=== PATIENT | female | born 1955 | race Caucasian/White ===

== ENCOUNTER 2017-07-30 05:39 | Outpatient (CLI) | payer BC ==
[~2017-07-30] VITALS: Ht 165.1 cm; Wt 83.9 kg
[~2017-07-30 05:39] MED LIST: DAPA5TAB PO; HYDR473S50 PO; METF500T4 PO
[2017-07-30] MEDS ORDERED: LEVO112T55 PO (13:49)
[2017-07-30] MEDS ORDERED: METF500T8 PO (13:49)
[2017-07-30] MEDS ORDERED: DAPA10TA PO (13:49)
== END 2017-07-30 13:55 ==
LOC: PREOP 05:39
PROVIDERS: ATTEND Surgery
DX: Z01.818 Encounter for other preprocedural examination (principal); Z86.010 Personal history of colon polyps

== ENCOUNTER 2017-08-06 06:59 | Day surgery (SDC) | payer BC ==
[~2017-08-06] VITALS: Ht 165.1 cm; Wt 83.9 kg
[~2017-08-06 06:59] MED LIST changes: +DAPA10TA PO; +LEVO112T55 PO; +METF500T8 PO
[2017-08-06] MEDS ORDERED: NS IV 500 ML 500 ML IV PRN (07:18)
[2017-08-06] MEDS ORDERED: NS IV 500 ML 500 ML ONE (07:20)
[2017-08-06 07:42] VITALS: BP 141/90
[2017-08-06] MEDS ORDERED: fentaNYL INJECTION 100 MCG/2 ML AMP ONE ×2 (08:28)
[2017-08-06] MEDS ORDERED: MIDAZOLAM 2 MG/2 ML (VERSED) VIAL ONE ×4 (08:28→08:29)
--- NOTE | 2017-08-06 08:36 | Conscious Sedation/ASA ---
Conscious Sedation Pre-Proced Time Reviewed: 08:36 ASA Class: 2 Airway Mallampati Classification: (sitka appropriate class) I. II. III, IV Lungs Heart ASA score ASA 1: a normal healthy patient ASA 2: a patient with a mild systemic disease (mid diabetes, controlled hypertension, obesity ASA 3: a patient with a severe systemic disease that limits activity (angina , COPD, prior Myocardial infarction) ASA 4: a patient with an incapacitating disease that is a constant threat to life (CHF, renal failure) ASA 5: a moribund patient not expected to survive 24 hrs. (ruptured aneurysm) ASA 6: a declared brain patient whose organs are being harvested. For emergent operations, add the letter E after the classification Grade 1 Sedation Plan: Discussed options with patient/fam Note The patient is an appropriate candidate to undergo the planned procedure, sedation, and anesthesia. The patient immediately re-assessed prior to indication. DONALD LEVIN MD Aug 06, 2017 8:36 am
--- NOTE | 2017-08-06 08:36 | History & Physicial ---
History of Present Illness History of Present Illness Reason for visit/HPI to undergo screening colonoscopy. She has a personal history of polyps and a family history of colon cancer. Her brother demised due to metastatic rectal carcinoma at age 38. Date of Admission Date Seen by Provider: Aug 06, 2017 Time Seen by Provider: 08:20 I consulted on this patient on 08/06/17 08:33 Attending Physician Donald Gilbert MD Admitting Physician Zhane Jon DO Consult Allergies and Home Medications Allergies Coded Allergies: No Known Drug Allergies (Unverified , 03/25/12) Home Medications Dapagliflozin Propanediol 10 Mg Tablet, 10 MG PO DAILY, (Reported) Levothyroxine Sodium 112 Mcg Tablet, 112 MCG PO DAILY, (Reported) Metformin HCl 500 Mg Tab.er.24h, 500 MG PO DAILY, (Reported) Past Aexzyda-Ukwflu-Ionzzw Hx Patient Social History Marrital Status: , Employed/Student: self-employed Alcohol Use: Denies Use Recreational Drug Use: No Smoking Status: Never a Smoker Recent Foreign Travel: No Contact w/other who traveled: No Recent Hopitalizations: No Immunizations Up To Date Tetanus Booster (TDap): Unknown Date of Influenza Vaccine: Jul 15, 2016 Seasonal Allergies Seasonal Allergies: Yes Surgeries Yes Thyroidectomy, Tonsillectomy Respiratory No Cardiovascular No Neurological No Genitourinary No Gastrointestinal Yes Polyps Musculoskeletal Yes Endocrine History of Endocrine Disorders: Yes Endocrine Disorders: Diabetes, Non-Insulin dep HEENT History of HEENT Disorders: No Loss of Vision: Bilateral Hearing Impairment: Denies Cancer No Psychosocial History of Psychiatric Problem: No Family Medical History Significant Family History: Cancer Family Hx: Alcoholism 19 FATHER Cardiovascular disease 19 MOTHER Colon cancer G8 BROTHER Diabetes mellitus 19 MOTHER G8 BROTHER Drug abuse G8 BROTHER Hypertension 19 MOTHER G8 BROTHER Constitutional: no symptoms reported EENTM: no symptoms reported Respiratory: no symptoms reported, dyspnea on exertion Gastrointestinal: no symptoms reported Genitourinary: no symptoms reported Musculoskeletal: no symptoms reported Skin: no symptoms reported Psychiatric/Neurological: No Symptoms Reported Physical Exam Vital Signs Vital Sign - Last 12Hours 08/06/17 07:42 Temp 97.3 Pulse 77 Resp 18 B/P (MAP) 141/90 Pulse Ox 95 O2 Delivery Room Air Capillary Refill : General Appearance: No Apparent Distress HEENT: Normal ENT Inspection Neck: Normal Inspection Respiratory: Lungs Clear Gastrointestinal: Non Tender, Soft Rectal: Deferred Neurologic/Psychiatric: Alert, Oriented x3 Skin: Warm/Dry Assessment/Plan Assessment and Plan lady with a personal history of polyps and a family history of colon cancer. Reviewed the details of colonoscopy including post polypectomy bleeding and iatrogenic perforation. Seems to be in agreement to proceed Problems: DONALD GILBERT MD Aug 06, 2017 8:36 am
[2017-08-06] MEDS: fentaNYL INJECTION 100 MCG/2 ML AMP IVP PRN ×4 (08:38→08:54)
[2017-08-06] MEDS: MIDAZOLAM 2 MG/2 ML (VERSED) VIAL IVP PRN ×4 (08:39→08:55)
--- NOTE | 2017-08-06 09:21 | Endo Procedure Record ---
Endo Procedure Report Date of Procedure Aug 06, 2017 Surgeon (s) DONALD LEVIN MD Post Procedure/Op Diagnosis 1 mm rectal polyp Procedure Performed colonoscopy to cecum Hot biopsy polypectomy Description of Procedure Anesthesia Type: Conscious Sedation Specimen(s) collected/removed rectal polyp Description of the Procedure Indication for procedure: This lady, with a personal history of polyps and a family history of colon cancer, came in for screening colonoscopy. Her brother demised of metastatic, advanced rectal cancer at age 38. Informed consent was obtained after reviewing the procedure in detail. Description of the procedure: She was placed in left lateral decubitus position and her vital signs were monitored. Conscious sedation was achieved using Versed and fentanyl. Digital rectal examination was unremarkable. The colonoscope was then introduced into the rectum and advanced all the way up to the cecum. The quality of bowel preparation was excellent. The scope was then withdrawn slowly and the mucosa examined in a systematic fashion. Findings: 1 mm polyp at the mid rectum, at was excised with hot biopsy forceps. She tolerated the procedure well and was taken back to the nursing area in a stable condition. Impression: Polyp surveillance. Small rectal polyp excised. Positive family history. Recommend repeating in 3 years. Copies To: ROXIE DAMIAN XAVIER M MD Aug 06, 2017 9:21 am
--- NOTE | 2017-08-06 09:24 | Discharge Inst-Simple/Standard ---
Discharge Inst-Standard Discharge Medications New, Converted or Re-Newed RX: Other Patient Instructions/Follow Up Plan of Care/Instructions/FU: repeat colonoscopy in 3 years Activity as Tolerated: Yes Discharge Diet: No Restrictions DONALD LEVIN MD Aug 06, 2017 9:24 am
[2017-08-06 09:25] VITALS: BP 125/73
[2017-08-06 09:55] VITALS: BP 124/74
[2017-08-06 10:07] VITALS: BP 124/74
== END 2017-08-06 10:07 | disposition home or self-care (01) ==
LOC: ENDO 06:59
PROVIDERS: ATTEND Surgery
DX: Z12.11 Encounter for screening for malignant neoplasm of colon (principal); K62.1 Rectal polyp; Z86.010 Personal history of colon polyps; Z80.0 Family history of malignant neoplasm of digestive organs; E11.9 Type 2 diabetes mellitus without complications; Z79.899 Other long term (current) drug therapy
CPT/HCPCS: 88305

== ENCOUNTER → 2017-08-15 | Outpatient (CLI) | payer BC ==
[~2017-08-15] VITALS: Ht 165.1 cm; Wt 83.0 kg
[~2017-08-15] MED LIST changes: +CATHETER FLUSH 10 ML SYR IV PRN
[2017-08-15 09:30] VITALS: BP 130/100
[2017-08-15 09:37] VITALS: BP 171/82
[2017-08-15 09:43] VITALS: BP 157/78
--- NOTE | 2017-08-16 13:50 | STRESS TEST ---
DATE OF SERVICE: 08/15/2017 EXERCISE MYOVIEW STRESS TEST REPORT REFERRING PHYSICIAN: Dr. Jon. Baseline heart rate is 78. Baseline blood pressure 130/100. Baseline EKG is sinus rhythm with no ischemic changes. In summary, the patient started exercising with a baseline heart rate, blood pressure and EKG mentioned above, was able to exercise for a total of 4 minutes on standard Sunny protocol. With peak exercise level, EKG was showing minimal nondiagnostic changes. During recovery, heart rate and blood pressure returned to baseline. EKG returned to baseline. The resting and stress images were reviewed and compared in the short axis, horizontal long axis and vertical long axis views. Review of the images showed good radiotracer uptake with no significant ischemia or infarction. SSS is 0. TID value is 0.95. On the gated images, the left ventricle appeared to be normal size with normal contractility. Calculated ejection fraction 63%. CONCLUSION: 1. Fair exercise tolerance, a total of 4 minutes of standard Sunny protocol, total of 5.8 METS achieving 88% of maximum expected heart rate. 2. Appropriate heart rate and blood pressure response to exercise returned to baseline during recovery. 3. Nondiagnostic EKG changes with exercise returned to baseline during recovery. 4. No ischemia or infarction on SPECT images. 5. Normal left ventricular size with normal contractility. Calculated ejection fraction 63%. Job ID: [id number] DocumentID: [id number] Dictated Date: 08/15/2017 14:51:29 Chemical Machine Tender Date: 08/15/2017 15:58:28 Dictated By: SHAHZAD MARTIN MD
== END ==
LOC: CARD 07:51
PROVIDERS: ATTEND Internal Medicine Cardiovascular Disease
DX: R07.89 Other chest pain (principal); E11.9 Type 2 diabetes mellitus without complications; E03.9 Hypothyroidism, unspecified; Z82.49 Family history of ischemic heart disease and other diseases of the circulatory system
CPT/HCPCS: 78452; 93017

== ENCOUNTER 2017-11-27 02:20 | Emergency (ER) | payer SELFPAY ==
[~2017-11-27] VITALS: Ht 165.1 cm; Wt 79.4 kg
[~2017-11-27 02:20] MED LIST changes: -CATHETER FLUSH 10 ML SYR IV PRN
[2017-11-27] MEDS ORDERED: ONDANSETRON 4 MG/2 ML (SDV) Z0FRAN IVP ONE (02:30)
[2017-11-27] MEDS ORDERED: ASPIRIN 81 MG CHEW (CHILDREN'S ASA) PO ONE (02:30)
[2017-11-27] MEDS ORDERED: LIDOCAINE 2% VISCOUS 15 ML UDC PO ONE (02:30)
[2017-11-27] MEDS ORDERED: ANTACID SUSP 30 ML UDC (MYLANTA) PO ONE (02:30)
[2017-11-27 02:59] LABS: BILIRUBIN,URINE NEGATIVE (NEGATIVE); CLARITY,URINE CLEAR; COLOR,URINE YELLOW; GLUCOSE, URINE (UA) 4+ (NEGATIVE); KETONES,URINE NEGATIVE (NEGATIVE); LEUKOCYTE ESTERASE ,URINE 3+ (NEGATIVE); NITRITE,URINE NEGATIVE (NEGATIVE); PH,URINE 6 (5-9); PROTEIN,URINE NEGATIVE (NEGATIVE); UROBILINOGEN,URINE NORMAL (NORMAL)
[2017-11-27 03:01] LABS: BASOPHILS # (AUTO) 0.1 10^3/uL (0.0-0.1); BASOPHILS % (AUTO) 0 % (0-10); EOSINOPHILS # (AUTO) 0.3 10^3/uL (0.0-0.3); EOSINOPHILS % (AUTO) 2 % (0-10); HEMATOCRIT 45 % (35-52); HEMOGLOBIN 15.3 G/DL (11.5-16.0); LYMPHOCYTES # (AUTO) 3.2 X 10^3 (1.0-4.0); LYMPHOCYTES % (AUTO) 24 % (12-44); MEAN CORPUSCULAR HEMOGLOBIN 30 PG (25-34); MEAN CORPUSCULAR HGB CONC 34 G/DL (32-36); MEAN CORPUSCULAR VOLUME 90 FL (80-99); MEAN PLATELET VOLUME 10.5 FL (7.4-10.4); MONOCYTES # (AUTO) 1.2 X 10^3 (0.0-1.0); MONOCYTES % (AUTO) 9 % (0-12); NEUTROPHILS # (AUTO) 8.7 X 10^3 (1.8-7.8); NEUTROPHILS % (AUTO) 65 % (42-75); PLATELET COUNT 301 10^3/uL (130-400); RED BLOOD COUNT 5.03 10^6/uL (4.35-5.85); RED CELL DISTRIBUTION WIDTH 12.5 % (10.0-14.5); WHITE BLOOD COUNT 13.4 10^3/uL (4.3-11.0)
[2017-11-27 03:11] LABS: BACTERIA,URINE MODERATE /HPF; SQUAMOUS EPITHELIAL CELL,UR 25-50 /HPF
[2017-11-27 03:12] LABS: INR 0.9 (0.8-1.4); PROTHROMBIN TIME PATIENT 12.7 SEC (12.2-14.7)
[2017-11-27 03:23] LABS: ALANINE AMINOTRANSFERASE 18 U/L (0-55); ALBUMIN 4.5 GM/DL (3.2-4.5); ALKALINE PHOSPHATASE 79 U/L (40-136); BILIRUBIN,TOTAL 1.4 MG/DL (0.1-1.0); BUN/CREATININE RATIO 13; CALCIUM 9.9 MG/DL (8.5-10.1); CARBON DIOXIDE 21 MMOL/L (21-32); CHLORIDE 106 MMOL/L (98-107); CREATININE SERUM 0.75 MG/DL (0.60-1.30); GFR ESTIMATED > 60; GLUCOSE 175 MG/DL (70-105); LIPASE 43 U/L (8-78); MAGNESIUM 1.9 MG/DL (1.8-2.4); POTASSIUM 3.2 MMOL/L (3.6-5.0); SODIUM 142 MMOL/L (135-145); TOTAL PROTEIN 7.7 GM/DL (6.4-8.2)
[2017-11-27] MEDS ORDERED: LACTATED RINGERS 1,000 ML IV ONE (03:27)
[2017-11-27 03:30] LABS: MYOGLOBIN SERUM 28.5 NG/ML (10.0-92.0)
--- NOTE | 2017-11-27 03:32 | ED Abdominal Pain ---
General Chief Complaint: Abdominal/GI Problems Stated Complaint: UPPER ABD PAIN Nursing Triage Note: ruq abdominal pain radiating around back Sepsis Screen: No Definite Risk Source of Information: Patient, Old Records Exam Limitations: No Limitations History of Present Illness Date Seen by Provider: Nov 27, 2017 Time Seen by Provider: 02:23 Initial Comments This 62-year-old woman presents to emergency room with complaints of pain across the upper abdomen and lower chest, right greater than left, and radiating to the right mid back. Pain started around 20:00 and has intensified since then. Patient went to the gym and worked out around 22:00 and wonders if that may have worsened the pain. She has associated nausea without vomiting. Her last solid food was around 18:00. She last drank water with 2 ibuprofen one hour prior to arrival. She denies any diarrhea. She is afebrile. She denies any prior episodes. Patient presented to the registration desk as a chest pain. EKG was ordered and obtained upon her triage. Medical record was reviewed and patient was found to have a negative stress test in August of last year. Allergies and Home Medications Allergies Coded Allergies: No Known Drug Allergies (Unverified , 03/25/12) Home Medications Cephalexin 500 Mg Capsule, 500 MG PO QID, #20 Prescribed by: JAVED BARRIENTOS on 11/27/17 0653 Dapagliflozin Propanediol 10 Mg Tablet, 10 MG PO DAILY, (Reported) Levothyroxine Sodium 112 Mcg Tablet, 112 MCG PO DAILY, (Reported) Metformin HCl 500 Mg Tab.er.24h, 500 MG PO DAILY, (Reported) Ondansetron 4 Mg Tab.rapdis, 4 MG SL Q4H PRN for NAUSEA/VOMITING-1ST LINE, #10 Prescribed by: JAVED BARRIENTOS on 11/27/17 0653 Tramadol HCl 50 Mg Tablet, 50 MG PO Q6H PRN for NAUSEA/VOMITING-1ST LINE, #10 Prescribed by: JAVED BARRIENTOS on 11/27/17 0653 Review of Systems Constitutional: no symptoms reported EENTM: No Symptoms Reported Respiratory: No Symptoms Reported Cardiovascular: No Symptoms Reported Gastrointestinal: See HPI Genitourinary: No Symptoms Reported Musculoskeletal: no symptoms reported Skin: no symptoms reported Psychiatric/Neurological: No Symptoms Reported Endocrine: No Symptoms Reported Hematologic/Lymphatic: No Symptoms Reported Past Xxestzb-Devfso-Cudgmd Hx Patient Social History Alcohol Use: Rarely Uses Alcohol Beverage of Choice: Other Recreational Drug Use: No Smoking Status: Never a Smoker Recent Foreign Travel: No Contact w/Someone Who Travel: No Recent Infectious Disease Expo: No Recent Hopitalizations: No Immunizations Up To Date Tetanus Booster (TDap): Unknown Date of Influenza Vaccine: Jul 15, 2016 Seasonal Allergies Seasonal Allergies: Yes Surgeries History of Surgeries: Yes Surgeries: Thyroidectomy, Tonsillectomy Respiratory History of Respiratory Disorde: No Cardiovascular History of Cardiac Disorders: No Neurological History of Neurological Disord: No Reproductive System : No CARPENTER'S ASSISTANT History: Menopausal Genitourinary History of Genitourinary Disor: No Gastrointestinal History of Gastrointestinal Di: Yes Gastrointestinal Disorders: Polyps Musculoskeletal History of Musculoskeletal Dis: Yes Endocrine History of Endocrine Disorders: Yes Endocrine Disorders: Diabetes, Non-Insulin dep HEENT History of HEENT Disorders: No Loss of Vision: Bilateral Hearing Impairment: Denies Cancer History of Cancer: No Psychosocial History of Psychiatric Problem: Yes Behavioral Health Disorders: Anxiety Integumentary History of Skin or Integumenta: No Blood Transfusions History of Blood Disorders: No Family Medical History Significant Family History: Cancer Family Medial History: Alcoholism 19 FATHER Cardiovascular disease 19 MOTHER Colon cancer G8 BROTHER Diabetes mellitus 19 MOTHER G8 BROTHER Drug abuse G8 BROTHER Hypertension 19 MOTHER G8 BROTHER Physical Exam Vital Signs VS - Last 72 Hours, by Label 11/27/17 11/27/17 11/27/17 11/27/17 02:25 02:47 03:53 07:01 Temp 98.0 97.6 Pulse 88 75 70 Resp 16 18 16 B/P (MAP) 143/89 (107) 149/86 (107) Pulse Ox 98 97 98 O2 Delivery Room Air Room Air Room Air Room Air Capillary Refill : Less Than 3 Seconds General Appearance: WD/WN, mild distress HEENT: PERRL/EOMI, normal ENT inspection Neck: normal inspection Respiratory: lungs clear, normal breath sounds, no respiratory distress, no accessory muscle use Cardiovascular: regular rate, rhythm, no edema, no murmur Gastrointestinal: normal bowel sounds, soft, tenderness (epigastrium and right upper quadrant) Extremities: normal inspection, no pedal edema Back: normal inspection, CVA tenderness (R) (minimal) Neurologic/Psychiatric: field education director II-XII nml as tested, no motor/sensory deficits, alert, normal mood/affect, oriented x 3 Skin: normal color, warm/dry Progress/Results/Core Measures Results/Orders Lab Results Laboratory Tests Test 11/27/17 02:45 Range/Units White Blood Count 13.4 H 4.3-11.0 10^3/uL Red Blood Count 5.03 4.35-5.85 10^6/uL Hemoglobin 15.3 11.5-16.0 G/DL Hematocrit 45 35-52 % Mean Corpuscular Volume 90 80-99 FL Mean Corpuscular Hemoglobin 30 25-34 PG Mean Corpuscular Hemoglobin Concent 34 32-36 G/DL Red Cell Distribution Width 12.5 10.0-14.5 % Platelet Count 301 130-400 10^3/uL Mean Platelet Volume 10.5 H 7.4-10.4 FL Neutrophils (%) (Auto) 65 42-75 % Lymphocytes (%) (Auto) 24 12-44 % Monocytes (%) (Auto) 9 0-12 % Eosinophils (%) (Auto) 2 0-10 % Basophils (%) (Auto) 0 0-10 % Neutrophils # (Auto) 8.7 H 1.8-7.8 X 10^3 Lymphocytes # (Auto) 3.2 1.0-4.0 X 10^3 Monocytes # (Auto) 1.2 H 0.0-1.0 X 10^3 Eosinophils # (Auto) 0.3 0.0-0.3 10^3/uL Basophils # (Auto) 0.1 0.0-0.1 10^3/uL Prothrombin Time 12.7 12.2-14.7 SEC INR Comment 0.9 0.8-1.4 Activated Partial Thromboplast Time 29 24-35 SEC Urine Color YELLOW Urine Clarity CLEAR Urine pH 6 5-9 Urine Specific [place] 1.020 1.016-1.022 Urine Protein NEGATIVE NEGATIVE Urine Glucose (UA) 4+ H NEGATIVE Urine Ketones NEGATIVE NEGATIVE Urine Nitrite NEGATIVE NEGATIVE Urine Bilirubin NEGATIVE NEGATIVE Urine Urobilinogen NORMAL NORMAL MG/DL Urine Leukocyte Esterase 3+ H NEGATIVE Urine RBC (Auto) 2+ H NEGATIVE Urine RBC 5-10 H /HPF Urine WBC 10-25 H /HPF Urine Squamous Epithelial Cells 25-50 H /HPF Urine Crystals NONE /LPF Urine Bacteria MODERATE H /HPF Urine Casts NONE /LPF Urine Mucus SMALL H /LPF Urine Culture Indicated YES Sodium Level 142 135-145 MMOL/L Potassium Level 3.2 L 3.6-5.0 MMOL/L Chloride Level 106 98-107 MMOL/L Carbon Dioxide Level 21 21-32 MMOL/L Anion Gap 15 H 5-14 MMOL/L Blood Urea Nitrogen 10 7-18 MG/DL Creatinine 0.75 0.60-1.30 MG/DL Estimat Glomerular Filtration Rate > 60 BUN/Creatinine Ratio 13 Glucose Level 175 H 70-105 MG/DL Calcium Level 9.9 8.5-10.1 MG/DL Magnesium Level 1.9 1.8-2.4 MG/DL Total Bilirubin 1.4 H 0.1-1.0 MG/DL Aspartate Amino Transf (AST/SGOT) 14 5-34 U/L Alanine Aminotransferase (ALT/SGPT) 18 0-55 U/L Alkaline Phosphatase 79 40-136 U/L Myoglobin 28.5 10.0-92.0 NG/ML Troponin I < 0.30 <0.30 NG/ML Total Protein 7.7 6.4-8.2 GM/DL Albumin 4.5 3.2-4.5 GM/DL Lipase 43 8-78 U/L Micro Results Microbiology 11/27/17 Urine Culture - Preliminary, Resulted Results To Follow My Orders Orders - JAVED HAYWARD MD Saline Lock/Iv-Start (11/27/17 02:23) Ekg Tracing (11/27/17 02:23) Monitor-Rhythm Ecg Trace Only (11/27/17 02:23) Cbc With Automated Diff (11/27/17 02:30) Magnesium (11/27/17 02:30) Chest 1 View, Ap/Pa Only (11/27/17 02:30) Cardiac Profile 1 (11/27/17 02:30) Comprehensive Metabolic Panel (11/27/17 02:30) Myoglobin Serum (11/27/17 02:30) Protime With Inr (11/27/17 02:30) Partial Thromboplastin Time (11/27/17 02:30) O2 (11/27/17 02:30) Aspirin Chewable Tablet (Baby Aspirin Ch (11/27/17 02:30) Lipase (11/27/17 02:30) Lidocaine 2% Viscous 15 Ml (Xylocaine Vi (11/27/17 02:30) Antacid Suspension (Mylanta Suspension (11/27/17 02:30) Ondansetron Injection (Zofran Injectio (11/27/17 02:30) Ua Culture If Indicated (11/27/17 02:40) Urine Culture (11/27/17 02:45) Ct Abdomen/Pelvis W (11/27/17 03:25) Lactated Ringers (Lr 1000 Ml Iv Solution (11/27/17 03:27) Iohexol Injection (Omnipaque 350 Mg/Ml 1 (11/27/17 04:30) Ns (Ivpb) (Sodium Chloride 0.9% Ivpb Bag (11/27/17 04:30) Pharmacy Communication (Pharmacy Communi (11/27/17 04:16) Pharmacy Communication (Pharmacy Communi (11/27/17 04:16) Us Gallbladder 06140 (11/27/17 05:27) Ketorolac Injection (Toradol Injection) (11/27/17 06:45) Received Contrast (Contrast Received) (11/27/17 06:45) Ciprofloxacin Tablet (Cipro Tablet) (11/27/17 06:45) Cephalexin Capsule (Keflex Capsule) (11/27/17 07:00) Cephalexin Capsule (Keflex Capsule) (11/27/17 06:49) Medications Given in ED Current Medications Medications Dose Ordered Sig/Isis Route Start Time Stop Time Status Last Admin Dose Admin Cephalexin HCl 500 mg ONCE ONCE PO 11/27/17 07:00 11/27/17 07:00 DC 11/27/17 06:53 500 MG Ciprofloxacin 500 mg ONCE ONCE PO 11/27/17 06:45 11/27/17 06:46 DC 11/27/17 06:53 500 MG Ketorolac Tromethamine 15 mg ONCE ONCE IVP 11/27/17 06:45 11/27/17 06:46 DC 11/27/17 06:41 15 MG Vital Signs/I&O Vital Sign - Last 12Hours 11/27/17 11/27/17 11/27/17 11/27/17 02:25 02:47 03:53 07:01 Temp 98.0 97.6 Pulse 88 75 70 Resp 16 18 16 B/P (MAP) 143/89 (107) 149/86 (107) Pulse Ox 98 97 98 O2 Delivery Room Air Room Air Room Air Room Air Blood Pressure Mean: 107 Progress Note #1: Time: 03:31 Progress Note Pain reduced from 8/10 down to 5/10 after GI cocktail and Zofran. Patient requests nothing more for pain treatment at this time. UTI with a small amount of hematuria was noted on UA. CT of the abdomen and pelvis was ordered to further investigate possible causes of the pain including cholecystitis, pancreatitis, or ureteral stone. Progress Note #2: Time: 05:[address] was unremarkable for causes of her pain. Gallbladder ultrasound was ordered to follow to complete the workup. Progress Note #3: Progress Note Gallbladder ultrasound was discussed with lay out technician. It was grossly unremarkable. Report was pending at the time of discharge. Patient started on antibiotic therapy for urinary tract infection. No definitive cause of her abdominal pain was identified. Still within the differential diagnoses would be biliary dyskinesia, gastritis, duodenitis, etc. Patient was advised to follow-up with her primary care provider for further assessment. Endoscopy and/ or hepatobiliary scan may be of benefit if symptoms continue. ECG Initial ECG Impression Date: Nov 27, 2017 Initial ECG Impression Time: 02:32 Initial ECG Rate: 73 Comment Sinus arrhythmia with no ST elevation or depression. No abnormal intervals or axis deviation. Diagnostic Imaging Diagonstic Imaging: Xray Plain Films/CT/US/NM/MRI: chest Comments Chest x-ray viewed by me. Report not yet available. No acute abnormalities appreciated. Diagonstic Imaging: CT Plain Films/CT/US/NM/MRI: abdomen, pelvis Comments CT abdomen and pelvis viewed by me and [facility] report reviewed. No acute abnormalities were appreciated to account for her abdominal pain. Diagonstic Imaging: Ultrasound Plain Films/CT/US/NM/MRI: abdomen Comments Gallbladder ultrasound was discussed with the lay out technician. It was grossly unremarkable. Report pending at dismissal. Report after dismissal was reviewed. See report below: NAME: BLAIR ULLOA J MED REC#: [id number] PT STATUS: DEP ER : 1955 PHYSICIAN: JAVED HAYWARD MD ADMIT DATE: 11/27/17/ER Signed Date of Exam: 11/27/17 US GALLBLADDER [id number] PROCEDURE: US Gallbladder. TECHNIQUE: Multiple real-time grayscale images were obtained over the right upper quadrant in various projections. INDICATION: Abdominal pain. COMPARISON: CT abdomen and pelvis performed earlier same day. FINDINGS: The liver has diffuse increased echogenicity indicative of diffuse hepatic steatosis. There is a simple cyst of the right hepatic lobe measuring 1.3 x 1.2 cm. The main portal vein is patent with antegrade flow. The gallbladder is distended with a single echogenic non-mobile stone versus polyp. No pericholecystic fluid or gallbladder wall thickening. The common bile duct is not visualized due to obscuration from overlying bowel gas. Right kidney is normal in size measuring 11 cm. There is a parapelvic cyst in lower pole of the left kidney. Pancreas is obscured by overlying bowel gas. No right upper quadrant ascites. IMPRESSION: 1. No sonographic findings of acute cholecystitis. There is a 6 mm non-mobile stone versus gallbladder wall polyp within the body of the gallbladder. 2. Marked diffuse hepatic steatosis. Dictated by: Dictated on workstation # [id number] Dict: 11/27/17 0647 Trans: 11/27/17 0835 Interpreted by: ROSHNI MCCONNELL MD Electronically signed by: ROSHNI MCCONNELL MD 11/27/1735 Departure Impression Impression: Primary Impression: Upper abdominal pain Additional Impression: Urinary tract infection Qualified Codes: N39.0 - Urinary tract infection, site not specified; R31.9 - Hematuria, unspecified Disposition: 01 HOME, SELF-CARE Condition: Improved Departure-Patient Inst. Decision time for Depature: 06:35 Referrals: ROXIE JON DO (PCP/Family) Primary Care Physician Patient Instructions: Acute Abdomen (Belly Pain), Adult (DC) Add. Discharge Instructions: Take omeprazole daily as prescribed. For acute flares of pain you may try additional antacid such as Pepcid or Tums. If this does not improve your pain you may take Tylenol (acetaminophen) and/ or Ultram as prescribed. Eat a low-fat diet. Follow-up with Dr. Jon as soon as possible for further evaluation. If symptoms persist, discussed the potential for further workup including possibly a hepatobiliary scan and/or endoscopy. Return to the emergency room if symptoms worsen significantly or you develop new symptoms such as fever. All discharge instructions reviewed with patient and/or family. Voiced understanding. Scripts Omeprazole (Omeprazole) 20 Mg Capsule.dr 20 MG PO DAILY, #30 CAP Prov: JAVED HAYWARD MD 11/27/17 Cephalexin (Keflex) 500 Mg Capsule 500 MG PO QID, #20 CAP Prov: JAVED HAYWARD MD 11/27/17 Ondansetron (Zofran Odt) 4 Mg Tab.rapdis 4 MG SL Q4H Y for NAUSEA/VOMITING-1ST LINE, #10 TAB Prov: JAVED HAYWARD MD 11/27/17 Tramadol HCl (Ultram) 50 Mg Tablet 50 MG PO Q6H Y for NAUSEA/VOMITING-1ST LINE, #10 TAB Prov: JAVED HAYWARD MD 11/27/17 Copy Copies To 1: ROXIE JON JOSHUA T MD Nov 27, 2017 03:32
[2017-11-27 03:53] VITALS: BP 149/86
[2017-11-27] MEDS ORDERED: NS 100 ML (IVPB) BAG IV ONE (04:30)
[2017-11-27] MEDS ORDERED: IOHEXOL 350 MG/ML 100 ML (OMNIPAQUE 350) VIAL IV ONE (04:30)
--- NOTE | 2017-11-27 06:29 | Diagnostic Imaging Report ---
PROCEDURE: CT abdomen and pelvis with contrast. TECHNIQUE: Multiple contiguous axial images were obtained through the abdomen and pelvis after administration of intravenous contrast. INDICATION: Right upper quadrant pain radiating around to back. COMPARISON: None available. FINDINGS: Lower chest: The lung bases are clear. No pericardial or pleural effusion. Peritoneum: No free intraperitoneal air or fluid. Liver and biliary system: Diffuse hypoattenuation of liver is indicative of hepatic steatosis. Nonenhancing bilobed cyst within the right hepatic lobe measures 1.3 x 1.0 cm. No concerning enhancing hepatic lesions. Gallbladder is distended without radiopaque gallstones. Spleen and Pancreas: Spleen is normal. The pancreas enhances normally without mass lesion or peripancreatic inflammatory changes. Adrenals: Normal. tract: The kidneys enhance normally without suspicious mass or obstruction. There are a few subcentimeter parapelvic cyst in the lower pole the right kidney. Urinary bladder is distended without wall thickening. Uterus and ovaries are normal in appearance. GI tract: Stomach is partially distended without wall thickening. No bowel obstruction. No pericolonic inflammatory changes. Normal appendix. Vasculature and Lymph nodes: Normal caliber aorta. No abdominal or pelvic lymphadenopathy. Musculoskeletal: No concerning osseous lesion. IMPRESSION: 1. Mildly distended gallbladder without radiopaque gallstones. If there is persistent right upper quadrant pain, then right upper quadrant ultrasound could be performed for further characterization. 2. Otherwise, no acute process. 3. Findings are in agreement with the preliminary report. Dictated by: Dictated on workstation # [id number]
[2017-11-27] MEDS ORDERED: CIPROFLOXACIN 500 MG (CIPRO) TABLET PO ONE (06:45)
[2017-11-27] MEDS ORDERED: RECEIVED CONTRAST (Hold Metformin) IV SCH (06:45)
[2017-11-27] MEDS ORDERED: KETOROLAC 30 MG/ML VIAL IVP ONE (06:45)
[2017-11-27] MEDS ORDERED: CEPHALEXIN 250 MG (KEFLEX) CAP PO ONE ×2 (06:49→07:00)
[2017-11-27] MEDS ORDERED: ONDA4TAB8 SL (06:53)
[2017-11-27] MEDS ORDERED: CEPH-507 PO (06:53)
[2017-11-27] MEDS ORDERED: TRAM-42 PO (06:53)
--- NOTE | 2017-11-27 06:55 | Diagnostic Imaging Report ---
PROCEDURE: US Gallbladder. TECHNIQUE: Multiple real-time grayscale images were obtained over the right upper quadrant in various projections. INDICATION: Abdominal pain. COMPARISON: CT abdomen and pelvis performed earlier same day. FINDINGS: The liver has diffuse increased echogenicity indicative of diffuse hepatic steatosis. There is a simple cyst of the right hepatic lobe measuring 1.3 x 1.2 cm. The main portal vein is patent with antegrade flow. The gallbladder is distended with a single echogenic non-mobile stone versus polyp. No pericholecystic fluid or gallbladder wall thickening. The common bile duct is not visualized due to obscuration from overlying bowel gas. Right kidney is normal in size measuring 11 cm. There is a parapelvic cyst in lower pole of the left kidney. Pancreas is obscured by overlying bowel gas. No right upper quadrant ascites. IMPRESSION: 1. No sonographic findings of acute cholecystitis. There is a 6 mm non-mobile stone versus gallbladder wall polyp within the body of the gallbladder. 2. Marked diffuse hepatic steatosis. Dictated by: Dictated on workstation # [id number]
--- NOTE | 2017-11-27 06:55 | Diagnostic Imaging Report ---
INDICATION: Abdominal pain. COMPARISON: CT abdomen and pelvis performed earlier the same day. FINDINGS: Visible lungs are clear. No pleural effusion or pneumothorax. The heart is on the upper limits of normal in size. Normal pulmonary vasculature. IMPRESSION: No acute cardiopulmonary process by portable radiography. Dictated by: Dictated on workstation # [id number]
[2017-11-27 07:01] VITALS: BP 135/78
[2017-11-27] MEDS ORDERED: OMEP20CA12 PO (17:07)
--- OUTSIDE RECORDS SUMMARY | 2017-11-29 13:21 | XMS REPORT | Continuity of Care Document ---
Author Author [facility] Organization [facility] Address Unknown Phone Unavailable Allergies Active Description Code Type Severity Reaction Onset Reported/Identified Relationship to Patient Clinical Status Yes No Known Drug Allergies [id number] Drug Allergy Unknown N/A 03/25/2012 Medications There is no data. Problems Date Dx Coded Attending Type Code Diagnosis Diagnosed By 03/25/2012 Ot 211.4 BENIGN NEOPL RECTUM/ANUS 03/25/2012 Ot 455.0 INT HEMORRHOID W/O COMPL 03/25/2012 Ot V58.69 OTH MED,LT, CURRENT USE 03/25/2012 Ot V76.51 SCREEN MAL NEOP-COLON 01/07/2015 VALERIA KNOWLES MD Ot 250.00 01/29/2015 VALERIA KNOWLES MD Ot 250.00 03/18/2015 VALERIA KNOWLES MD Ot 250.00 DIAB DONN WO COMPL, TYPE II OR UNSPEC TY 07/29/2015 LEV ALCALAP Ot 721.0 07/29/2015 LEV ALCALA OFFICE CLERK ASSISTANT Ot 721.3 07/29/2015 LEV ALCALA Ot 728.85 01/11/2016 ANNA FOFANA POLICY ADVISOR Ot Z12.31 01/26/2016 ANNA FOFANA POLICY ADVISOR Ot Z12.31 08/15/2016 Ot 611.72 LUMP OR MASS IN BREAST 08/15/2016 Ot V72.84 EXAM PRE- OPERATIVE NOS 08/15/2016 VALERIA KNOWLES MD Ot V76.12 OTH SCREEN MAMMO-MALIGN NEOPLASM OF [place] 08/15/2016 VALERIA KNOWLES MD Ot 787.3 FLATUL/ERUCTAT/GAS PAIN 08/15/2016 VALERIA KNOWLES MD Ot 250.00 DIAB DONN WO COMPL, TYPE II OR UNSPEC TY 08/15/2016 LEV ALCALAP Ot 721.0 CERVICAL SPONDYLOSIS 08/15/2016 LEV ALCALA OFFICE CLERK ASSISTANT Ot 721.3 LUMBOSACRAL SPONDYLOSIS 08/15/2016 LEV ALCALA OFFICE CLERK ASSISTANT Ot 728.85 SPASM OF MUSCLE 08/15/2016 ANNA FOFANA POLICY ADVISOR Ot Z12.31 ENCNTR SCREEN MAMMOGRAM FOR MALIGNANT NE 08/16/2016 ORENDER DO, ROXIE S Ot E04.9 NONTOXIC GOITER, UNSPECIFIED 08/21/2016 ORENDER DO, ROXIE S Ot E04.9 NONTOXIC GOITER, UNSPECIFIED 08/21/2016 ORENDER DO, ROXIE S Ot E04.9 NONTOXIC GOITER, UNSPECIFIED 08/24/2016 ORENDER DO, ROXIE S Ot E04.9 NONTOXIC GOITER, UNSPECIFIED 08/31/2016 ORENDER DO, ROXIE S Ot E04.1 NONTOXIC SINGLE THYROID NODULE 09/06/2016 POONAM CONKLIN, DONALD Hooker Ot E04.1 NONTOXIC SINGLE THYROID NODULE 09/06/2016 POONAM CONKLIN, DONALD Hooker Ot Z01.818 ENCOUNTER FOR OTHER PREPROCEDURAL EXAMIN 09/08/2016 POONAM CONKLIN, DONALD Hooker Ot E04.1 NONTOXIC SINGLE THYROID NODULE 09/08/2016 POONAM CONKLIN, DONALD Hooker Ot Z01.818 ENCOUNTER FOR OTHER PREPROCEDURAL EXAMIN 09/11/2016 ORENDER DO, ROXIE S Ot E04.1 NONTOXIC SINGLE THYROID NODULE 09/12/2016 ORENDER DO, ROXIE S Ot E04.1 NONTOXIC SINGLE THYROID NODULE 09/13/2016 POONAM CONKLIN, DONALD Hooker Ot D34 BENIGN NEOPLASM OF THYROID GLAND 09/13/2016 POONAM CONKLIN, DONALD Hooker Ot D34 BENIGN NEOPLASM OF THYROID GLAND 09/19/2016 POONAM CONKLIN, DONALD Hooker Ot D34 BENIGN NEOPLASM OF THYROID GLAND 10/02/2016 POONAM CONKLIN, DONALD Hooker Ot E89.0 POSTPROCEDURAL HYPOTHYROIDISM 10/02/2016 ORENDER DO, ROXIE S Ot E04.1 NONTOXIC SINGLE THYROID NODULE 10/02/2016 ORENDER DO, ROXIE S Ot E11.65 TYPE 2 DIABETES MELLITUS WITH HYPERGLYCE 10/05/2016 ORENDER DO, ROXIE S Ot E04.1 NONTOXIC SINGLE THYROID NODULE 10/05/2016 ROXIE DAMIAN DO S Ot E11.65 TYPE 2 DIABETES MELLITUS WITH HYPERGLYCE 10/11/2016 ROXIE DAMIAN DO S Ot E04.1 NONTOXIC SINGLE THYROID NODULE 10/11/2016 ROXIE DAMIAN DO S Ot E11.65 TYPE 2 DIABETES MELLITUS WITH HYPERGLYCE 07/30/2017 POONAM CONKLIN, DONALD Hooker Ot Z01.818 ENCOUNTER FOR OTHER PREPROCEDURAL EXAMIN 07/30/2017 POONAM OCNKLIN, DONALD Hooker Ot Z86.010 PERSONAL HISTORY OF COLONIC POLYPS 07/30/2017 POONAM CONKLIN, DONALD Hooker Ot Z01.818 ENCOUNTER FOR OTHER PREPROCEDURAL EXAMIN 07/30/2017 POONAM CONKLIN, DONALD Hooker Ot Z86.010 PERSONAL HISTORY OF COLONIC POLYPS 07/30/2017 POONAM CONKLIN, DONALD Hooker Ot Z01.818 ENCOUNTER FOR OTHER PREPROCEDURAL EXAMIN 07/30/2017 POONAM CONKLIN, DONALD Hooker Ot Z86.010 PERSONAL HISTORY OF COLONIC POLYPS 08/03/2017 Ot V72.84 EXAM PRE- OPERATIVE NOS 08/03/2017 BENSON CONKLIN, VALERIA Hooker Ot V76.12 OTH SCREEN MAMMO-MALIGN NEOPLASM OF [place] 08/03/2017 BENSON CONKLIN, VALERIA Hooker Ot 787.3 FLATUL/ERUCTAT/GAS PAIN 08/03/2017 VALERIA KNOWLES MD Ot 250.00 DIAB DONN WO COMPL, TYPE II OR UNSPEC TY 08/03/2017 LEV ALCALA OFFICE CLERK ASSISTANT Ot 721.0 CERVICAL SPONDYLOSIS 08/03/2017 LEV ALCALA OFFICE CLERK ASSISTANT Ot 721.3 LUMBOSACRAL SPONDYLOSIS 08/03/2017 LEV ALCALA OFFICE CLERK ASSISTANT Ot 728.85 SPASM OF MUSCLE 08/03/2017 ANNA FOFANA APRN Ot Z12.31 ENCNTR SCREEN MAMMOGRAM FOR MALIGNANT NE 08/03/2017 ROXIE DAMIAN DO S Ot E04.9 NONTOXIC GOITER, UNSPECIFIED 08/03/2017 ROXIE DAMIAN DO S Ot E04.1 NONTOXIC SINGLE THYROID NODULE 08/03/2017 POONAM CONKLIN, DONALD Hooker Ot E89.0 POSTPROCEDURAL HYPOTHYROIDISM 08/03/2017 ROXIE DAMIAN DO S Ot E04.1 NONTOXIC SINGLE THYROID NODULE 08/03/2017 PAULETTE DAMIAN DOQUELINE S Ot E11.65 TYPE 2 DIABETES MELLITUS WITH HYPERGLYCE 08/06/2017 Ot V72.84 EXAM PRE- OPERATIVE NOS 08/06/2017 VALERIA KNOWLES MD Ot V76.12 OTH SCREEN MAMMO-MALIGN NEOPLASM OF [place] 08/06/2017 VALERIA KNOWLES MD Ot 787.3 FLATUL/ERUCTAT/GAS PAIN 08/06/2017 VALERIA KNOWLES MD Ot 250.00 DIAB DONN WO COMPL, TYPE II OR UNSPEC TY 08/06/2017 LEV ALCALA OFFICE CLERK ASSISTANT Ot 721.0 CERVICAL SPONDYLOSIS 08/06/2017 LEV ALCALA OFFICE CLERK ASSISTANT Ot 721.3 LUMBOSACRAL SPONDYLOSIS 08/06/2017 ELV ALCALA OFFICE CLERK ASSISTANT Ot 728.85 SPASM OF MUSCLE 08/06/2017 ANNA FOFANA APRN Ot Z12.31 ENCNTR SCREEN MAMMOGRAM FOR MALIGNANT NE 08/06/2017 AMAYA DAMIAN DOLINE S Ot E04.9 NONTOXIC GOITER, UNSPECIFIED 08/06/2017 AMAYA DAMIAN DOLINE S Ot E04.1 NONTOXIC SINGLE THYROID NODULE 08/06/2017 POONAM CONKLIN, DONALD Hooker Ot E89.0 POSTPROCEDURAL HYPOTHYROIDISM 08/06/2017 AMAYA DAMIAN DOLINE S Ot E04.1 NONTOXIC SINGLE THYROID NODULE 08/06/2017 PAULETTE DAMIAN DOQUELINE S Ot E11.65 TYPE 2 DIABETES MELLITUS WITH HYPERGLYCE 08/06/2017 POONAM CONKLIN, DONALD Hooker Ot E11.9 TYPE 2 DIABETES MELLITUS WITHOUT COMPLIC 08/06/2017 POONAM CONKLIN, DONALD Hooker Ot K62.1 RECTAL POLYP 08/06/2017 POONAM CONKLIN, DONALD Hooker Ot Z12.11 ENCOUNTER FOR SCREENING FOR MALIGNANT NE 08/06/2017 POONAM CONKLIN, DONALD Hooker Ot Z79.899 OTHER DIRECTOR [employer] (CURRENT) DRUG THERAPY 08/06/2017 POONAM CONKLIN, DONADL Hooker Ot Z80.0 FAMILY HISTORY OF MALIGNANT NEOPLASM OF 08/06/2017 POONAM CONKLIN, DONALD Hooker Ot Z86.010 PERSONAL HISTORY OF COLONIC POLYPS 08/09/2017 Ot V72.84 EXAM PRE- OPERATIVE NOS 08/09/2017 VALERIA KNOWLES MD Ot V76.12 OTH SCREEN MAMMO-MALIGN NEOPLASM OF [place] 08/09/2017 VALERIA KNOWLES MD Ot 787.3 FLATUL/ERUCTAT/GAS PAIN 08/09/2017 VALERIA KNOWLES MD Ot 250.00 DIAB DONN WO COMPL, TYPE II OR UNSPEC TY 08/09/2017 LEV ALCALA OFFICE CLERK ASSISTANT Ot 721.0 CERVICAL SPONDYLOSIS 08/09/2017 LEV ALCALA OFFICE CLERK ASSISTANT Ot 721.3 LUMBOSACRAL SPONDYLOSIS 08/09/2017 LEV ALCALA OFFICE CLERK ASSISTANT Ot 728.85 SPASM OF MUSCLE 08/09/2017 ANNA FOFANA APRN Ot Z12.31 ENCNTR SCREEN MAMMOGRAM FOR MALIGNANT NE 08/09/2017 YURYNDNINA DO, ROXIE S Ot E04.9 NONTOXIC GOITER, UNSPECIFIED 08/09/2017 YURYNDNINA DO, ROXIE S Ot E04.1 NONTOXIC SINGLE THYROID NODULE 08/09/2017 POONAM CONKLIN, DONALD M Ot E89.0 POSTPROCEDURAL HYPOTHYROIDISM 08/09/2017 ORENDER DO, ROXIE S Ot E04.1 NONTOXIC SINGLE THYROID NODULE 08/09/2017 YURYNDER DO, ROXIE S Ot E11.65 TYPE 2 DIABETES MELLITUS WITH HYPERGLYCE 08/14/2017 Ot V72.84 EXAM PRE- OPERATIVE NOS 08/14/2017 VALERIA KNOWLES MD Ot V76.12 OTH SCREEN MAMMO-MALIGN NEOPLASM OF [place] 08/14/2017 VALERIA KNOWLES MD Ot 787.3 FLATUL/ERUCTAT/GAS PAIN 08/14/2017 VALERIA KNOWLES MD Ot 250.00 DIAB DONN WO COMPL, TYPE II OR UNSPEC TY 08/14/2017 LEV ALCALA OFFICE CLERK ASSISTANT Ot 721.0 CERVICAL SPONDYLOSIS 08/14/2017 LEV ALCALA OFFICE CLERK ASSISTANT Ot 721.3 LUMBOSACRAL SPONDYLOSIS 08/14/2017 LEV ALCALA OFFICE CLERK ASSISTANT Ot 728.85 SPASM OF MUSCLE 08/14/2017 ANNA FOFANA APRN Ot Z12.31 ENCNTR SCREEN MAMMOGRAM FOR MALIGNANT NE 08/14/2017 YURYNDER DO ROXIE S Ot E04.9 NONTOXIC GOITER, UNSPECIFIED 08/14/2017 AMAYA DAMIAN DOLINE S Ot E04.1 NONTOXIC SINGLE THYROID NODULE 08/14/2017 DONALD LEVIN MD Ot E89.0 POSTPROCEDURAL HYPOTHYROIDISM 08/14/2017 ROXIE DAMIAN DO S Ot E04.1 NONTOXIC SINGLE THYROID NODULE 08/14/2017 AMAYA DAMIAN DOLINE S Ot E11.65 TYPE 2 DIABETES MELLITUS WITH HYPERGLYCE 08/17/2017 DONALD LEVIN MD Ot E11.9 TYPE 2 DIABETES MELLITUS WITHOUT COMPLIC 08/17/2017 DONALD LEVIN MD Ot K62.1 RECTAL POLYP 08/17/2017 DONALD LEVIN MD Ot Z12.11 ENCOUNTER FOR SCREENING FOR MALIGNANT NE 08/17/2017 DONALD LEVIN MD Ot Z79.899 OTHER [facility]PC (CURRENT) DRUG THERAPY 08/17/2017 DONALD LEVIN MD Ot Z80.0 FAMILY HISTORY OF MALIGNANT NEOPLASM OF 08/17/2017 DONALD LEVIN MD Ot Z86.010 PERSONAL HISTORY OF COLONIC POLYPS 08/22/2017 SHAHZAD MARTIN MD Ot E03.9 HYPOTHYROIDISM, UNSPECIFIED 08/22/2017 SHAHZAD MARTIN MD Ot E11.9 TYPE 2 DIABETES MELLITUS WITHOUT COMPLIC 08/22/2017 SHAHZAD MARTIN MD Ot R07.89 OTHER CHEST PAIN 08/22/2017 SHAHZAD MARTIN MD Ot Z82.49 FAMILY HX OF ISCHEM HEART DIS AND OTH DI 08/29/2017 SHAHZAD MARTIN MD Ot E03.9 HYPOTHYROIDISM, UNSPECIFIED 08/29/2017 SHAHZAD MARTIN MD Ot E11.9 TYPE 2 DIABETES MELLITUS WITHOUT COMPLIC 08/29/2017 SHAHZAD MARTIN MD Ot R07.89 OTHER CHEST PAIN 08/29/2017 SHAHZAD MARTIN MD Ot Z82.49 FAMILY HX OF ISCHEM HEART DIS AND OTH DI Procedures There is no data. Results Test Result Range Methicillin resistant Staphylococcus aureus (MRSA) screening culture - 10:15 Methicillin resistant Staphylococcus aureus (MRSA) screening culture NEG NRG Capillary blood glucose measurement by glucometer (mass/volume) - 09/11/16 10: 23 Capillary blood glucose measurement by glucometer (mass/volume) 130 mg/dL 70-110 Automated blood complete blood count (hemogram) panel - 09/11/16 10:48 Blood leukocytes automated count (number/volume) 6.2 10*3/uL 4.3-11.0 Blood erythrocytes automated count (number/volume) 4.46 10*6/uL 4.35-5.85 Venous blood hemoglobin measurement (mass/volume) 13.4 g/dL 11.5-16.0 Blood hematocrit (volume fraction) 40 % 35-52 Automated erythrocyte mean corpuscular volume 91 [foz_us] 80-99 Automated erythrocyte mean corpuscular hemoglobin (mass per erythrocyte) 30 pg 25-34 Automated erythrocyte mean corpuscular hemoglobin concentration measurement ( mass/volume) 33 g/dL 32-36 Automated erythrocyte distribution width ratio 12.3 % 10.0-14.5 Automated blood platelet count (count/volume) 299 10*3/uL 130-400 Automated blood platelet mean volume measurement 10.2 [foz_us] 7.4-10.4 Whole blood basic metabolic panel - 09/11/16 10:48 Serum or plasma sodium measurement (moles/volume) 140 mmol/L 135-145 Serum or plasma potassium measurement (moles/volume) 3.6 mmol/L 3.6-5.0 Serum or plasma chloride measurement (moles/volume) 110 mmol/L 98-107 Carbon dioxide 21 mmol/L 21-32 Serum or plasma anion gap determination (moles/volume) 9 mmol/L 5-14 Serum or plasma urea nitrogen measurement (mass/volume) 7 mg/dL 7-18 Serum or plasma creatinine measurement (mass/volume) 0.61 mg/dL 0.60-1.30 Serum or plasma urea nitrogen/creatinine mass ratio 11 NRG Serum or plasma creatinine measurement with calculation of estimated glomerular filtration rate > NRG Serum or plasma glucose measurement (mass/volume) 135 mg/dL 70-105 Serum or plasma calcium measurement (mass/volume) 8.8 mg/dL 8.5-10.1 Capillary blood glucose measurement by glucometer (mass/volume) - 09/11/16 21: 29 Capillary blood glucose measurement by glucometer (mass/volume) 145 mg/dL 70-110 Whole blood basic metabolic panel - 09/12/16 05:00 Serum or plasma sodium measurement (moles/volume) 137 mmol/L 135-145 Serum or plasma potassium measurement (moles/volume) 4.1 mmol/L 3.6-5.0 Serum or plasma chloride measurement (moles/volume) 101 mmol/L 98-107 Carbon dioxide 26 mmol/L 21-32 Serum or plasma anion gap determination (moles/volume) 10 mmol/L 5-14 Serum or plasma urea nitrogen measurement (mass/volume) 4 mg/dL 7-18 Serum or plasma creatinine measurement (mass/volume) 0.67 mg/dL 0.60-1.30 Serum or plasma urea nitrogen/creatinine mass ratio 6 NRG Serum or plasma creatinine measurement with calculation of estimated glomerular filtration rate > NRG Serum or plasma glucose measurement (mass/volume) 159 mg/dL 70-105 Serum or plasma calcium measurement (mass/volume) 8.7 mg/dL 8.5-10.1 Serum or plasma phosphate measurement (mass/volume) - 09/12/16 05:00 Serum or plasma phosphate measurement (mass/volume) 4.1 mg/dL 2.3-4.7 Magnesium - 09/12/16 05:00 Magnesium 1.7 mg/dL 1.8-2.4 Capillary blood glucose measurement by glucometer (mass/volume) - 09/12/16 09: 47 Capillary blood glucose measurement by glucometer (mass/volume) 189 mg/dL 70-110 Capillary blood glucose measurement by glucometer (mass/volume) - 09/12/16 11: 05 Capillary blood glucose measurement by glucometer (mass/volume) 186 mg/dL 70-110 Capillary blood glucose measurement by glucometer (mass/volume) - 09/12/16 15: 52 Capillary blood glucose measurement by glucometer (mass/volume) 172 mg/dL 70-110 Capillary blood glucose measurement by glucometer (mass/volume) - 09/12/16 20: 54 Capillary blood glucose measurement by glucometer (mass/volume) 137 mg/dL 70-110 Capillary blood glucose measurement by glucometer (mass/volume) - 09/13/16 05: 24 Capillary blood glucose measurement by glucometer (mass/volume) 130 mg/dL 70-110 Hemoglobin A1c - 09/29/16 09:06 Hemoglobin A1c 6.5 % 4.5-6.2 THYROID STIMULATING HORMONE - 09/29/16 09:06 THYROID STIMULATING HORMONE 0.80 u[iU]/mL 0.35-4.94 Serum or plasma thyroxine (T4) free measurement (mass/volume) - 09/29/16 09:06 Serum or plasma thyroxine (T4) free measurement (mass/volume) 1.19 ng/dL 0.70-1.48 Urine microalbumin measurement by test strip (mass/volume) - 09/29/16 09:06 Urine creatinine measurement (mass/volume) 122 % NRG Microalbumin [mass/volume] in urine 10.1 % 0.0-20.0 Microalbumin/creatinine [ratio] in urine 8.3 mg/g{Cre} 0.0-30.0 Encounters ACCT No. Visit Date/Time Discharge Status Pt. Type Provider Facility Loc./Unit Complaint [id number] 08/15/2017 07:51:00 08/15/2017 23:59:59 CLS Outpatient SHAHZAD MARTIN MD [facility] CARD ANTERIOR CHEST WALL PAIN R07.89 [id number] 08/14/2017 12:02:00 08/14/2017 23:59:59 CLS Outpatient SHAHZAD MARTIN MD [facility] CARD ANTERIOR CHEST WALL PAIN R07.89 [id number] 08/06/2017 06:59:00 08/06/2017 10:07:00 DIS Outpatient DONALD LEVIN MD [facility] ENDO HX OF POLYPS [id number] 07/30/2017 05:39:00 07/30/2017 13:55:00 DIS Outpatient DONALD LEVIN MD [facility] PREOP HX OF POLYPS [id number] 07/10/2017 10:50:00 07/10/2017 23:59:59 CLS Preadmit ROXIE DAMIAN DO S [facility] CARD CHEST PAIN [id number] 07/10/2017 10:45:00 07/10/2017 23:59:59 CLS Preadmit ROXIE DAMIAN DO S [facility] CARD CHEST PAIN [id number] 09/29/2016 08:55:00 09/29/2016 23:59:59 CLS Outpatient ROXIE DAMIAN DO S [facility] LAB HEMOGLOBIN, TSH [id number] 09/29/2016 08:49:00 09/29/2016 23:59:59 CLS Outpatient DONALD LEVIN MD [facility] LAB TSH [id number] 09/11/2016 10:01:00 09/13/2016 09:45:00 DIS Outpatient DONALD LEVIN MD [facility] SDC THYROID NODULES [id number] 09/06/2016 05:34:00 09/06/2016 10:18:00 DIS Outpatient DONALD LEVNI MD [facility] PREOP THYROID NODULES [id number] 08/28/2016 08:03:00 08/28/2016 23:59:59 CLS Outpatient ROXIE DAMIAN DO [facility] RAD RT THYROID NODULE [id number] 08/15/2016 10:27:00 08/15/2016 23:59:59 CLS Outpatient ROXIE DAMIAN DO S [facility] RAD THYROID NODULE [id number] 01/11/2016 12:43:00 01/11/2016 23:59:59 CLS Outpatient ANNA FOFANA APRN [facility] RAD SCREENING [id number] 07/13/2015 12:54:00 07/13/2015 23:59:59 CLS Outpatient LEV ALCALA [facility] RAD NECK PAIN [id number] 03/19/2015 08:00:00 03/19/2015 23:59:59 CLS Preadmit VALERIA KNOWLES MD [facility] DSME DM 2 [id number] 01/04/2015 18:00:00 03/18/2015 00:01:00 DIS Outpatient VALERIA KNOWLES MD [facility] DSME DM 2 [id number] 08/05/2013 10:55:00 08/05/2013 23:59:59 CLS Outpatient VALERIA KNOWLES MD [facility] RAD INCREASED ABD NYDIA HAQ [id number] 03/05/2013 14:33:00 03/05/2013 23:59:59 CLS Outpatient VALERIA KNOWLES MD [facility] RAD ROUTINE [id number] 02/06/2013 19:51:00 02/06/2013 23:59:59 [facility] Outpatient [id number] 03/25/2012 08:05:00 Document Registration [id number] 03/22/2012 08:40:00 Document Registration [id number] 12/26/2011 07:59:00 Document Registration
== END 2017-11-27 07:00 | disposition home or self-care (01) ==
LOC: EDUNIT# 02:20 → ER 02:21
DX: N39.0 Urinary tract infection, site not specified (principal); E11.9 Type 2 diabetes mellitus without complications; F41.9 Anxiety disorder, unspecified; Z80.0 Family history of malignant neoplasm of digestive organs; Z82.49 Family history of ischemic heart disease and other diseases of the circulatory system; Z79.84 Long term (current) use of oral hypoglycemic drugs; Z90.89 Acquired absence of other organs
CPT/HCPCS: 36415; 71045; 74177; 76705; 80053; 81000; 83690; 83735; 83874; 84484; 85025; 85610; 85730; 87077; 87088; 93005; 93041; 96361; 96374; 96375

== ENCOUNTER 2017-12-03 06:06 | Outpatient (CLI) | payer SELFPAY ==
[~2017-12-03] VITALS: Ht 165.1 cm; Wt 79.4 kg
== END 2017-12-03 09:54 ==
LOC: PREOP 06:06
PROVIDERS: ATTEND Surgery
DX: Z01.818 Encounter for other preprocedural examination (principal); K80.20 Calculus of gallbladder without cholecystitis without obstruction

== ENCOUNTER → 2017-12-03 | Outpatient (CLI) | payer BC ==
[~2017-12-03] MED LIST changes: +CEPH-507 PO; +OMEP20CA12 PO; +ONDA4TAB8 SL; +TRAM-42 PO
[2017-12-03 15:18] LABS: ALANINE AMINOTRANSFERASE 18 U/L (0-55); ALBUMIN 4.4 GM/DL (3.2-4.5); ALKALINE PHOSPHATASE 82 U/L (40-136); AMYLASE 81 U/L (25-125); BILIRUBIN,DIRECT 0.3 MG/DL (0.0-0.3); BILIRUBIN,INDIRECT 0.7 MG/DL; BUN/CREATININE RATIO 16; CALCIUM 9.8 MG/DL (8.5-10.1); CARBON DIOXIDE 26 MMOL/L (21-32); CHLORIDE 106 MMOL/L (98-107); CREATININE SERUM 0.75 MG/DL (0.60-1.30); GFR ESTIMATED > 60; GLUCOSE 108 MG/DL (70-105); LIPASE 43 U/L (8-78); POTASSIUM 4.1 MMOL/L (3.6-5.0); SODIUM 142 MMOL/L (135-145); TOTAL PROTEIN 7.4 GM/DL (6.4-8.2)
--- NOTE | 2017-12-05 10:54 | Physician Query-Final Dx ---
NIKO KELLY 12/05/17 1054: Clinic Account Progress/Dx Physician Query: Please specify the location of the abd pain. [employer] will not accept the unspecified abd pain diagnosis. thank you Date of Service Dec 03, 2017 at 14:37 DONALD LEVIN MD 12/05/17 1310: Clinic Account Progress/Dx DIAGNOSIS: Diagnosis Right upper quadrant pain. Her actual diagnosis should be gallstone with chronic cholecystitis Progress Note: RUQ pain NIKO KELLY Dec 05, 2017 10:54 DONALD LEVIN MD Dec 05, 2017 13:10
== END ==
LOC: LAB 14:37
PROVIDERS: ATTEND Surgery
DX: E87.6 Hypokalemia (principal); R53.83 Other fatigue; R10.11 Right upper quadrant pain; K80.10 Calculus of gallbladder with chronic cholecystitis without obstruction
CPT/HCPCS: 36415; 80053; 80076; 82150; 82248; 83690

== ENCOUNTER 2017-12-04 10:13 | Day surgery (SDC) | payer BC ==
[~2017-12-04] VITALS: Ht 165.1 cm; Wt 79.4 kg
[2017-12-04] MEDS ORDERED: ceFAZolin 1 GM/NS 50 ML IVPB IV ONE ×2 (10:30)
[2017-12-04] MEDS ORDERED: CATHETER FLUSH 10 ML SYR IV PRN (10:30)
[2017-12-04] MEDS ORDERED: metroNIDAZOLE 500 MG/100 ML IVPB (PRE-MIX) IV ONE (10:30)
[2017-12-04] MEDS ORDERED: LACTATED RINGERS 1,000 ML IV PRN ×2 (10:51→10:55)
[2017-12-04 10:54] VITALS: BP 123/84
[2017-12-04] MEDS ORDERED: metroNIDAZOLE 500MG/100ML IVPB 100 ML IV ONE (11:00)
[2017-12-04] MEDS ORDERED: ceFAZolin INJECTION 1,000 MG in NS (IVPB) 50 ML IV ONE (11:00)
[2017-12-04] MEDS ORDERED: BUP/EPI 0.5% 1:200,000 (SENSORCAINE) 30 ML VIAL ONE (11:26)
[2017-12-04] MEDS ORDERED: fentaNYL INJECTION 100 MCG/2 ML AMP ONE ×2 (11:30→13:09)
[2017-12-04] MEDS ORDERED: MIDAZOLAM 2 MG/2 ML (VERSED) VIAL ONE (11:30)
[2017-12-04] MEDS ORDERED: SEVOFLURANE (ULTANE) 15 ML INHAL SOLN ONE (11:30)
[2017-12-04] MEDS ORDERED: ROCURONIUM 50 MG/5 ML (ZEMURON) VIAL IV ONE (11:30)
[2017-12-04] MEDS ORDERED: LIDOCAINE PF 2% 5 ML (XYLOCAINE) VIAL ONE (11:30)
[2017-12-04] MEDS ORDERED: ONDANSETRON 4 MG/2 ML (SDV) Z0FRAN ONE (11:30)
[2017-12-04] MEDS ORDERED: proPOfol 200 MG/20 ML (DIPRIVAN) VIAL IV ONE (11:30)
--- NOTE | 2017-12-04 11:31 | Progress Note-Pre Operative ---
Pre-Operative Progress Note H&P Reviewed The H&P was reviewed, patient examined and no changes noted. Date Seen by Provider: Dec 03, 2017 Time Seen by Provider: 16:00 Date H&P Reviewed: Dec 04, 2017 Time H&P Reviewed: 11:31 Pre-Operative Diagnosis: gALLSTONE DONALD LEVIN MD Dec 04, 2017 11:31 am
[2017-12-04] MEDS ORDERED: NEOSTIGMINE (BLOXIVERZ ) 1 MG/1ML 10 ML VIAL ONE (13:09)
[2017-12-04] MEDS ORDERED: GLYCOPYRROLATE 0.2 MG/ML (ROBINUL) 2 ML VIAL ONE (13:09)
--- NOTE | 2017-12-04 13:29 | Operative Report ---
Operative Report Date of Procedure/Surgery Dec 04, 2017 Surgeon (s) DONALD LEVIN MD Potato Bucker (s): N/A Post-Operative Diagnosis Gallstone Chronic cholecystitis Procedure Performed Robotic-assisted cholecystectomy Description of Procedure Anesthesia Type: General Estimated blood loss (mL): Minimal Specimen(s) collected/removed Gallbladder Description of the Procedure Indication for the procedure: This lady presented with symptoms due to a solitary gallstone and slight elevation of liver enzymes. She was offered cholecystomy using minimally invasive technique with robotic assistance. Possibility of cholangiogram was discussed, but as would be described in the operative report, it could not be accomplished due to technical difficulties. Informed consent was obtained after reviewing the operative details and complications of wound infection and bile leak. Description of procedure: She was placed supine on the operative table and general anesthesia induced. A gram of Ancef and 500 mg of Flagyl were administered intravenously as prophylaxis against wound infection. Sequential compression devices were placed around her legs, to minimize the risk of venous thrombosis. Abdomen was prepared and draped in the usual sterile manner. A supraumbilical incision was made and pneumoperitoneum established using a Veress needle. Intra -abdominal pressure was maintained at 15 mm using carbon dioxide insufflation. A 12 mm trocar was placed and anatomy visualized using a high definition, 3- dimensional laparoscope, associated with da Dedrick system. Under direct view, I placed an 8 mm trocar over each side of the abdomen, followed by a 5 mm trocar over the left upper quadrant. The patient was then turned into a reverse Trendelenburg position and the robotic system docked in place. Omentum was adherent to the body of the gallbladder due to inflammation. He was taken down by careful dissection using cautery, revealing a thickened gallbladder, confirming chronic cholecystis. The fundus was retracted cephalad and the infundibulum grasped with Cadiere forceps. Thickened tissue around the neck of the gallbladder was incised using the hook cautery, delineating the cystic duct and artery. I attempted to perform cholangiogram but the catheter could not be held securely. Therefore, further attempts were abandoned and the cystic duct was controlled with ligaclips. Cystic artery was managed in a similar fashion followed by cholecystectomy using the hook cautery. Subhepatic space was irrigated with saline and the gallbladder placed in an Endo Catch bag , being removed via the supraumbilical trocar site. Fascia over this incision was closed using #1 Vicryl using the Sabino Deleon device. Skin incisions were closed using 0 Vicryl, in a subcuticular fashion. 0.5 percent was infiltrated along the incisions, both pre-preemptively and at the conclusion of the operation She tolerated the procedure well, was extubated in the operating room and taken to the recovery room in a stable condition. Findings of the Procedure See op report Allergies and Home Medications Allergies Coded Allergies: No Known Drug Allergies (Unverified , 03/25/12) Home Medications Dapagliflozin Propanediol 10 Mg Tablet, 10 MG PO DAILY, (Reported) Levothyroxine Sodium 112 Mcg Tablet, 112 MCG PO DAILY, (Reported) Metformin HCl 500 Mg Tab.er.24h, 500 MG PO DAILY, (Reported) DONALD LEVIN MD Dec 04, 2017 1:29 pm
--- NOTE | 2017-12-04 13:30 | Discharge Inst-Simple/Standard ---
Discharge Inst-Standard Discharge Medications New, Converted or Re-Newed RX: Other Patient Instructions/Follow Up Plan of Care/Instructions/FU: She has a prescription for Vicodin from yesterday. Dressings off in 48 hours. Incentive spirometry. Follow-up in 3 weeks. Activity as Tolerated: Yes Discharge Diet: No Restrictions DONALD LEVIN MD Dec 04, 2017 1:30 pm
[2017-12-04] MEDS ORDERED: HYDROmorphone (DILAUDID) 2 MG/ML VIAL IVP PRN (13:45)
--- NOTE | 2017-12-04 14:10 | Diagnostic Imaging Report ---
INDICATION: Fluoroscopy for laparoscopic intraoperative cholangiogram. FINDINGS: Fluoroscopy was provided in the OR during a laparoscopic intraoperative cholangiogram. 12 seconds of fluoroscopy time was utilized. No images were obtained. IMPRESSION: Fluoroscopy in the OR, as described. Dictated by: Dictated on workstation # [id number]
[2017-12-04] MEDS: ONDANSETRON 4 MG/2 ML (SDV) Z0FRAN IVP PRN ×2 (14:12→14:22)
[2017-12-04] MEDS: morphine INJ 10 MG/ML 1ML (SYR OR VIAL) IVP PRN ×3 (14:15→14:31)
[2017-12-04 14:55] VITALS: BP 138/83
[2017-12-04 15:25] VITALS: BP 125/82
[2017-12-04] MEDS ORDERED: HYDROcodone/APAP 5 MG/325 MG (LORTAB) TAB PO ONE (15:45)
[2017-12-04 17:00] VITALS: BP 125/82
[2017-12-04 18:30] VITALS: BP 113/71
[2017-12-04] MEDS ORDERED: fentaNYL INJECTION 100 MCG/2 ML AMP IVP PRN (18:30)
[2017-12-04] MEDS ORDERED: ONDANSETRON 4 MG/2 ML (SDV) Z0FRAN IVP PRN (18:30)
[2017-12-04 19:10] VITALS: BP 122/68
[2017-12-04] MEDS: LACTATED RINGERS 1,000 ML IV SCH (19:57)
[2017-12-04] MEDS: HYDROcodone/APAP 5 MG/325 MG (LORTAB) TAB PO PRN (22:33)
[2017-12-05] VITALS: BP 136/76
[2017-12-05] MEDS: HYDROcodone/APAP 5 MG/325 MG (LORTAB) TAB PO PRN (03:05)
[2017-12-05 04:14] VITALS: BP 131/68
[2017-12-05] MEDS: LACTATED RINGERS 1,000 ML IV SCH (06:02)
[2017-12-05 08:00] VITALS: BP 129/65
== END 2017-12-05 09:15 | disposition home or self-care (01) ==
LOC: SDC 10:13 → 4TH 19:40 → SDC 12-05 09:15
PROVIDERS: ATTEND Surgery
DX: K81.2 Acute cholecystitis with chronic cholecystitis (principal); K65.8 Other peritonitis; E11.9 Type 2 diabetes mellitus without complications; E03.9 Hypothyroidism, unspecified; I10 Essential (primary) hypertension; Z79.84 Long term (current) use of oral hypoglycemic drugs; Z79.899 Other long term (current) drug therapy
CPT/HCPCS: 82962; 87081

== ENCOUNTER → 2018-04-30 | Outpatient (CLI) | payer BC ==
[~2018-04-30] MED LIST changes: -METF500T4 PO; +METF500T5 PO
--- NOTE | 2018-04-30 13:47 | Diagnostic Imaging Report ---
INDICATION: Routine screening. COMPARISON: 01/11/2016 and 03/05/2013. TECHNIQUE: 2D and 3D bilateral screening mammography was performed with CAD. FINDINGS: Both breasts remain heterogeneously dense, limiting the sensitivity of mammography. No mass or malignant appearing microcalcifications are seen. The axillae are unremarkable. IMPRESSION: No mammographic features suspicious for malignancy are identified. ACR BI-RADS Category 1: Negative. Result letter will be mailed to the patient. Note: At least 10% of breast cancer is not imaged by mammography. Dictated by: Dictated on workstation # [id number]
== END ==
LOC: RAD 09:46
PROVIDERS: ATTEND Family Medicine
DX: Z12.31 Encounter for screening mammogram for malignant neoplasm of breast (principal)
CPT/HCPCS: 77067

== ENCOUNTER 2018-07-31 06:14 | Outpatient (CLI) | payer BC ==
[~2018-07-31] VITALS: Ht 165.1 cm; Wt 77.1 kg
[~2018-07-31 06:14] MED LIST changes: +METF-397 PO; -METF500T5 PO
== END 2018-07-31 13:55 | disposition home or self-care (01) ==
LOC: PREOP 06:14
PROVIDERS: ATTEND Specialist
DX: Z01.818 Encounter for other preprocedural examination (principal)

== ENCOUNTER 2018-08-02 05:55 | Day surgery (SDC) | payer BC ==
[~2018-08-02] VITALS: Ht 165.1 cm; Wt 77.1 kg
[2018-08-02] MEDS ORDERED: EPINEPHrine INJECTION 1 MG/ML AMP INJ ONE (06:00)
[2018-08-02] MEDS ORDERED: MOXIFLOXACIN OPHTH SOLN 5 MG/ML 0.3 ML SYRINGE OP ONE (06:00)
[2018-08-02] MEDS ORDERED: POVIDONE (BETADINE) OPHTH SOLN 5% 30 ML OP ONE (06:00)
[2018-08-02] MEDS ORDERED: LIDOCAINE PF 1% 2 ML AMP IR PRN (06:00)
[2018-08-02] MEDS ORDERED: BSS 15 ML IR PRN (06:00)
[2018-08-02] MEDS ORDERED: TIMOLOL MALEATE 0.5% 5 ML (TIMOPTIC) BTL OU PRN (06:00)
[2018-08-02] MEDS: TETRACAINE 0.5% OPHTH SOLN 4 ML BTL (SINGLE DOSE ONLY) OU PRN ×4 (06:11→06:30)
[2018-08-02 06:15] VITALS: BP 138/83
[2018-08-02] MEDS: CYCLOPENTOLATE 1% (CYCLOGYL) 2 ML DROPS OP SCH ×3 (06:18→06:30)
[2018-08-02] MEDS: PHENYLEPHRINE 10% OPHTH (NEO-SYN) 5 ML BTL OU SCH ×3 (06:18→06:30)
[2018-08-02] MEDS ORDERED: MIDAZOLAM 2 MG/2 ML (VERSED) VIAL ONE (06:44)
--- NOTE | 2018-08-02 07:01 | Ophthalmologist Pre-Op Note ---
Pre-Operative Progress Note H&P Reviewed The H&P was reviewed, patient examined and no changes noted. Date H&P Reviewed: Aug 02, 2018 Time H&P Reviewed: 07:01 Pre-Op Dx Cataract, Right Eye ASTER NETTLES MD Aug 02, 2018 07:01
--- NOTE | 2018-08-02 07:26 | Ophthalmology Operative Report ---
Cataract removal/placement IOL PREOPERATIVE DIAGNOSIS: Cataract Right Eye POSTOPERATIVE DIAGNOSIS: Cataract Right Eye PROCEDURE: Cataract removal and placement of posterior chamber implant, right eye SURGEON: Galo Nettles ANESTHESIA: Topical with sedation COMPLICATIONS: None ESTIMATED BLOOD LOSS: Minimal DESCRIPTION OF PROCEDURE: After proper informed consent was obtained, the patient, a 62 female, was taken to the Operating Room and the right eye was anesthetized with tetracaine. The right eye was then prepped and draped in the usual manner. A wire lid speculum was placed. A paracentesis was made at the left hand position. Preservative free lidocaine was injected into the anterior chamber followed by viscoelastic. A clear corneal incision was made in the temporal position. A capsulorrhexis was preformed and the central nuclear and cortical material were removed. The posterior capsule was polished and Manuel 18.5 [id number] IOL was placed into the capsular bag. The residual viscoelastic was aspirated and balanced saline solution was injected into the anterior chamber. Moxifloxacin was injected into the anterior chamber. The wound was checked and found to be water tight. The patient tolerated the procedure well without complications. GALO NETTLES MD Aug 02, 2018 07:26
[2018-08-02] MEDS ORDERED: acetaZOLAMIDE ER 500 MG CAP (DIAMOX SEQUELS) PO ONE (07:30)
[2018-08-02 07:35] VITALS: BP 147/93
--- NOTE | 2018-08-02 11:23 | Anesthesia-General Post-Op ---
MAC Patient Condition Mental Status/LOC: Same as Preop Cardiovascular: Satisfactory Nausea/Vomiting: Absent Respiratory: Satisfactory Pain: Controlled Complications: Absent Post Op Complications Complications None Follow Up Care/Instructions Patient Instructions None needed. Anesthesiology Discharge Order Discharge Order Patient is doing well, no complaints, stable vital signs, no apparent adverse anesthesia problems. No complications reported per nursing. RICH SHARMA CRNA Aug 02, 2018 11:23
== END 2018-08-02 07:35 | disposition home or self-care (01) ==
LOC: SDC 05:55
PROVIDERS: ATTEND Specialist
DX: H25.11 Age-related nuclear cataract, right eye (principal); E11.36 Type 2 diabetes mellitus with diabetic cataract; E03.9 Hypothyroidism, unspecified; Z79.84 Long term (current) use of oral hypoglycemic drugs; Z79.899 Other long term (current) drug therapy
CPT/HCPCS: 82962

== ENCOUNTER 2018-08-21 05:50 | Outpatient (CLI) | payer BC ==
[~2018-08-21] VITALS: Ht 165.1 cm; Wt 77.1 kg
== END 2018-08-21 10:01 | disposition home or self-care (01) ==
LOC: PREOP 05:50
PROVIDERS: ATTEND Specialist
DX: Z01.818 Encounter for other preprocedural examination (principal)

== ENCOUNTER 2018-08-23 07:35 | Day surgery (SDC) | payer BC ==
[~2018-08-23] VITALS: Ht 165.1 cm; Wt 77.1 kg
[2018-08-23 07:50] VITALS: BP 121/80
[2018-08-23] MEDS: TETRACAINE 0.5% OPHTH SOLN 4 ML BTL (SINGLE DOSE ONLY) OU PRN ×4 (07:50→08:06)
[2018-08-23] MEDS: TROPICAMIDE 1% OPH SOLN (MYDRIACYL) 15 ML BTL OU PRN ×3 (07:53→08:06)
[2018-08-23] MEDS: PHENYLEPHRINE 10% OPHTH (NEO-SYN) 5 ML BTL OU PRN ×3 (07:53→08:06)
--- OUTSIDE RECORDS SUMMARY | 2018-08-23 08:07 | XMS REPORT | Continuity of Care Document ---
Author Author [facility] Organization [facility] Address Unknown Phone Unavailable Allergies Active Description Code Type Severity Reaction Onset Reported/Identified Relationship to Patient Clinical Status Yes No Known Drug Allergies [id number] Drug Allergy Unknown N/A 08/21/2018 Medications There is no data. Problems Date [...] LEV ALCALAP Ot 721.0 07/29/2015 LEV ALCALA COLD MEAT CHEF Ot 721.3 07/29/2015 LEV ALCALA Ot 728.85 01/11/2016 ANNA FOFANA CHARGE ENTRY SPECIALIST Ot Z12.31 01/26/2016 ANNA FOFANA CHARGE ENTRY SPECIALIST Ot Z12.31 08/15/2016 Ot 611.72 LUMP OR MASS IN BREAST 08/15/2016 Ot V72.84 EXAM PRE- OPERATIVE NOS 08/15/2016 VALERIA KNOWLES MD Ot V76.12 OTH SCREEN MAMMO-MALIGN NEOPLASM OF [place] 08/15/2016 VALERIA KNOWLES MD Ot 787.3 FLATUL/ERUCTAT/GAS PAIN 08/15/2016 VALERIA KNOWLES MD Ot 250.00 DIAB DONN WO COMPL, TYPE II OR UNSPEC TY 08/15/2016 LEV ALCALAP Ot 721.0 CERVICAL SPONDYLOSIS 08/15/2016 LEV ALCALA COLD MEAT CHEF Ot 721.3 LUMBOSACRAL SPONDYLOSIS 08/15/2016 LEV ALCALA COLD MEAT CHEF Ot 728.85 SPASM OF MUSCLE 08/15/2016 ANNA FOFANA CHARGE ENTRY SPECIALIST Ot Z12.31 ENCNTR SCREEN MAMMOGRAM FOR MALIGNANT NE 08/16/2016 ORENDER DO, ZHANE S Ot E04.9 NONTOXIC GOITER, UNSPECIFIED 08/21/2016 ORENDER DO, ZHANE S Ot E04.9 NONTOXIC GOITER, UNSPECIFIED 08/21/2016 ORENDER DO, ZHANE S Ot E04.9 NONTOXIC GOITER, UNSPECIFIED 08/24/2016 ORENDER DO, ZHANE S Ot E04.9 NONTOXIC GOITER, UNSPECIFIED 08/31/2016 ORENDER DO, ZHANE S Ot E04.1 NONTOXIC SINGLE THYROID NODULE 09/06/2016 POONAM CONKLIN, DONALD Hooker Ot E04.1 NONTOXIC SINGLE THYROID NODULE 09/06/2016 POONAM CONKLIN, DONALD Hooker Ot Z01.818 ENCOUNTER FOR OTHER PREPROCEDURAL EXAMIN 09/08/2016 POONAM CONKLIN, DONALD Hooker Ot E04.1 NONTOXIC SINGLE THYROID NODULE 09/08/2016 POONAM CONKLIN, DONALD Hooker Ot Z01.818 ENCOUNTER FOR OTHER PREPROCEDURAL EXAMIN 09/11/2016 ORENDER DO, ZHANE S Ot E04.1 NONTOXIC SINGLE THYROID NODULE 09/12/2016 ORENDER DO, ZHANE S Ot E04.1 NONTOXIC SINGLE THYROID NODULE 09/13/2016 POONAM CONKLIN, DONALD Hooker Ot D34 BENIGN NEOPLASM OF THYROID GLAND 09/13/2016 POONAM CONKLIN, DONALD Hooker Ot D34 BENIGN NEOPLASM OF THYROID GLAND 09/19/2016 POONAM CONKLIN, DONLAD Hooker Ot D34 BENIGN NEOPLASM OF THYROID GLAND 10/02/2016 POONAM CONKLIN, DONALD Hooker Ot E89.0 POSTPROCEDURAL HYPOTHYROIDISM 10/02/2016 ORENDER DO, ZHANE S Ot E04.1 NONTOXIC SINGLE THYROID NODULE 10/02/2016 ORENDER DO, ZHANE S Ot E11.65 TYPE 2 DIABETES MELLITUS WITH HYPERGLYCE 10/05/2016 ORENDER DO, ZHANE S Ot E04.1 NONTOXIC SINGLE THYROID NODULE 10/05/2016 ZHANE JON DO S Ot E11.65 TYPE 2 DIABETES MELLITUS WITH HYPERGLYCE 10/11/2016 ZHANE JON DO S Ot E04.1 NONTOXIC SINGLE THYROID NODULE 10/11/2016 ZHANE JON DO S Ot E11.65 TYPE 2 DIABETES MELLITUS WITH HYPERGLYCE 07/30/2017 POONAM CONKLIN, DONALD Hooker Ot Z01.818 ENCOUNTER FOR OTHER PREPROCEDURAL EXAMIN 07/30/2017 POONAM CONKLIN, DONALD Hooker Ot Z86.010 PERSONAL HISTORY OF COLONIC POLYPS 07/30/2017 POONAM CONKLIN, DONLAD Hooker Ot Z01.818 ENCOUNTER FOR OTHER PREPROCEDURAL [...] II OR UNSPEC TY 08/03/2017 LEV ALCALA COLD MEAT CHEF Ot 721.0 CERVICAL SPONDYLOSIS 08/03/2017 LEV ALCALA COLD MEAT CHEF Ot 721.3 LUMBOSACRAL SPONDYLOSIS 08/03/2017 LEV ALCALA COLD MEAT CHEF Ot 728.85 SPASM OF MUSCLE 08/03/2017 ANNA FOFANA APRN Ot Z12.31 ENCNTR SCREEN MAMMOGRAM FOR MALIGNANT NE 08/03/2017 ZHANE JON DO S Ot E04.9 NONTOXIC GOITER, UNSPECIFIED 08/03/2017 ZHANE JON DO S Ot E04.1 NONTOXIC SINGLE THYROID NODULE 08/03/2017 POONAM CONKLIN, DONALD Hooker Ot E89.0 POSTPROCEDURAL HYPOTHYROIDISM 08/03/2017 ZHANE JON DO S Ot E04.1 NONTOXIC SINGLE THYROID NODULE 08/03/2017 PAULETTE JON DOQUELINE S Ot E11.65 TYPE 2 DIABETES MELLITUS WITH HYPERGLYCE 08/06/2017 Ot V72.84 EXAM PRE- OPERATIVE NOS 08/06/2017 VALERIA KNOWLES MD Ot V76.12 OTH SCREEN MAMMO-MALIGN NEOPLASM OF [place] 08/06/2017 VALERIA KNOWLES MD Ot 787.3 FLATUL/ERUCTAT/GAS PAIN 08/06/2017 VALERIA KNOWLES MD Ot 250.00 DIAB DONN WO COMPL, TYPE II OR UNSPEC TY 08/06/2017 LEV ALCALA COLD MEAT CHEF Ot 721.0 CERVICAL SPONDYLOSIS 08/06/2017 LEV ALCALA COLD MEAT CHEF Ot 721.3 LUMBOSACRAL SPONDYLOSIS 08/06/2017 LEV ALCALA COLD MEAT CHEF Ot 728.85 SPASM OF MUSCLE 08/06/2017 ANNA FOFANA APRN Ot Z12.31 ENCNTR SCREEN MAMMOGRAM FOR MALIGNANT NE 08/06/2017 AMAYA JON DOLINE S Ot E04.9 NONTOXIC GOITER, UNSPECIFIED 08/06/2017 AMAYA JON DOLINE S Ot E04.1 NONTOXIC SINGLE THYROID NODULE 08/06/2017 POONAM CONKLIN, DONALD Hooker Ot E89.0 POSTPROCEDURAL HYPOTHYROIDISM 08/06/2017 AMAYA JON DOLINE S Ot E04.1 NONTOXIC SINGLE THYROID NODULE 08/06/2017 PAULETTE JON DOQUELINE S Ot E11.65 TYPE 2 DIABETES MELLITUS WITH HYPERGLYCE 08/06/2017 POONAM CONKLIN, DONALD Hooker Ot E11.9 TYPE 2 DIABETES MELLITUS WITHOUT COMPLIC 08/06/2017 POONAM CONKLIN, DONALD Hooker Ot K62.1 RECTAL POLYP 08/06/2017 POONAM CONKLIN, DONALD Hooker Ot Z12.11 ENCOUNTER FOR SCREENING FOR MALIGNANT NE 08/06/2017 POONAM CONKLIN, DONALD Hooker Ot Z79.899 OTHER MANAGER CULTURE (CURRENT) DRUG THERAPY 08/06/2017 POONAM CONKLIN, DONALD Hooker Ot Z80.0 FAMILY HISTORY OF MALIGNANT [...] II OR UNSPEC TY 08/09/2017 LEV ALCALA COLD MEAT CHEF Ot 721.0 CERVICAL SPONDYLOSIS 08/09/2017 LEV ALCALA COLD MEAT CHEF Ot 721.3 LUMBOSACRAL SPONDYLOSIS 08/09/2017 LEV ALCALA COLD MEAT CHEF Ot 728.85 SPASM OF MUSCLE 08/09/2017 ANNA FOFANA APRN Ot Z12.31 ENCNTR SCREEN MAMMOGRAM FOR MALIGNANT NE 08/09/2017 YURYNDNINA DO, ZHANE S Ot E04.9 NONTOXIC GOITER, UNSPECIFIED 08/09/2017 YURYNDNINA DO, ZHANE S Ot E04.1 NONTOXIC SINGLE THYROID NODULE 08/09/2017 POONAM CONKLIN, DONALD M Ot E89.0 POSTPROCEDURAL HYPOTHYROIDISM 08/09/2017 ORENDER DO, ZHANE S Ot E04.1 NONTOXIC SINGLE THYROID NODULE 08/09/2017 YURYNDER DO, ZHANE S Ot E11.65 TYPE 2 DIABETES MELLITUS WITH HYPERGLYCE 08/14/2017 Ot V72.84 EXAM PRE- OPERATIVE NOS 08/14/2017 VALERIA KNOWLES MD Ot V76.12 OTH SCREEN MAMMO-MALIGN NEOPLASM OF [place] 08/14/2017 VALERIA KNOWLES MD Ot 787.3 FLATUL/ERUCTAT/GAS PAIN 08/14/2017 VALERIA KNOWLES MD Ot 250.00 DIAB DONN WO COMPL, TYPE II OR UNSPEC TY 08/14/2017 LEV ALCALA COLD MEAT CHEF Ot 721.0 CERVICAL SPONDYLOSIS 08/14/2017 LEV ALCALA COLD MEAT CHEF Ot 721.3 LUMBOSACRAL SPONDYLOSIS 08/14/2017 LEV ALCALA COLD MEAT CHEF Ot 728.85 SPASM OF MUSCLE 08/14/2017 ANNA FOFANA APRN Ot Z12.31 ENCNTR SCREEN MAMMOGRAM FOR MALIGNANT NE 08/14/2017 YURYNDER DO ZHANE S Ot E04.9 NONTOXIC GOITER, UNSPECIFIED 08/14/2017 RICKIE ALVAREZ ZHANE S Ot E04.1 NONTOXIC SINGLE THYROID NODULE 08/14/2017 POONAM CONKLIN, DONALD Hooker Ot E89.0 POSTPROCEDURAL HYPOTHYROIDISM 08/14/2017 AMAYA JON DOLINE S Ot E04.1 NONTOXIC SINGLE THYROID NODULE 08/14/2017 RICKIE ALVAREZ ZHANE S Ot E11.65 TYPE 2 DIABETES MELLITUS WITH HYPERGLYCE 08/17/2017 DONALD LEVIN MD Ot E11.9 TYPE 2 DIABETES MELLITUS WITHOUT COMPLIC 08/17/2017 POONAM CONKLIN, DONALD Hooker Ot K62.1 RECTAL POLYP 08/17/2017 POONAM CONKLIN, DONALD Hooker Ot Z12.11 ENCOUNTER FOR SCREENING FOR MALIGNANT NE 08/17/2017 DONALD LEVIN MD Ot Z79.899 OTHER MANAGER CULTURE (CURRENT) DRUG THERAPY 08/17/2017 DONALD LEVIN MD [...] OF ISCHEM HEART DIS AND OTH DI 11/27/2017 JAVED HAYWARD MD Ot E11.9 TYPE 2 DIABETES MELLITUS WITHOUT COMPLIC 11/27/2017 JAVED HAYWARD MD Ot F41.9 ANXIETY DISORDER, UNSPECIFIED 11/27/2017 JAVED HAYWARD MD Ot N39.0 URINARY TRACT INFECTION, SITE NOT SPECIF 11/27/2017 JAVED HAYWARD MD Ot R10.12 LEFT UPPER QUADRANT PAIN 11/27/2017 JAVED HAYWARD MD Ot Z79.84 SKILLED NURSING (CURRENT) USE OF ORAL HYPOGLYC 11/27/2017 JAVED HAYWARD MD Ot Z80.0 FAMILY HISTORY OF MALIGNANT NEOPLASM OF 11/27/2017 JAVED HAYWARD MD Ot Z82.49 FAMILY HX OF ISCHEM HEART DIS AND OTH DI 11/27/2017 JAVED HAYWARD MD Ot Z90.89 ACQUIRED ABSENCE OF OTHER ORGANS 11/29/2017 JAVED HAYWARD MD Ot E11.9 TYPE 2 DIABETES MELLITUS WITHOUT COMPLIC 11/29/2017 JAVED HAYWARD MD Ot F41.9 ANXIETY DISORDER, UNSPECIFIED 11/29/2017 JAVED HAYWARD MD Ot N39.0 URINARY TRACT INFECTION, SITE NOT SPECIF 11/29/2017 JAVED HAYWARD MD Ot R10.12 LEFT UPPER QUADRANT PAIN 11/29/2017 JAVED HAYWARD MD Ot Z79.84 MANAGER CULTURE (CURRENT) USE OF ORAL HYPOGLYC 11/29/2017 JAVED HAYWARD MD Ot Z80.0 FAMILY HISTORY OF MALIGNANT NEOPLASM OF 11/29/2017 JAVED HAYWARD MD Ot Z82.49 FAMILY HX OF ISCHEM HEART DIS AND OTH DI 11/29/2017 JAVED HAYWARD MD Ot Z90.89 ACQUIRED ABSENCE OF OTHER ORGANS 12/03/2017 DONALD LEVIN MD Ot K80.20 CALCULUS OF GALLBLADDER W/O CHOLECYSTITI 12/03/2017 DONALD LEVIN MD Ot Z01.818 ENCOUNTER FOR OTHER PREPROCEDURAL EXAMIN 12/04/2017 VALERIA KNOWLES MD Ot V76.12 OTH SCREEN MAMMO-MALIGN NEOPLASM OF [place] 12/04/2017 VALERIA KNOWLES MD Ot 787.3 FLATUL/ERUCTAT/GAS PAIN 12/04/2017 VALERIA KNOWLES MD Ot 250.00 DIAB DONN WO COMPL, TYPE II OR UNSPEC TY 12/04/2017 LEV ALCALA Ot 721.0 CERVICAL SPONDYLOSIS 12/04/2017 LEV ALCALA COLD MEAT CHEF Ot 721.3 LUMBOSACRAL SPONDYLOSIS 12/04/2017 LEV ALCALA COLD MEAT CHEF Ot 728.85 SPASM OF MUSCLE 12/04/2017 ANNA FOFANA CHARGE ENTRY SPECIALIST Ot Z12.31 ENCNTR SCREEN MAMMOGRAM FOR MALIGNANT NE 12/04/2017 ORENDER DO, ZHANE S Ot E04.9 NONTOXIC GOITER, UNSPECIFIED 12/04/2017 ORENDER DO, ZHANE S Ot E04.1 NONTOXIC SINGLE THYROID NODULE 12/04/2017 POONAM CONKLIN, DONALD Hooker Ot E89.0 POSTPROCEDURAL HYPOTHYROIDISM 12/04/2017 ORENDER DO, ZHANE S Ot E04.1 NONTOXIC SINGLE THYROID NODULE 12/04/2017 ORENDER DO, ZHANE S Ot E11.65 TYPE 2 DIABETES MELLITUS WITH HYPERGLYCE 12/04/2017 SHAHZAD MARTIN MD Ot E03.9 HYPOTHYROIDISM, UNSPECIFIED 12/04/2017 SHAHZAD MARTIN MD Ot E11.9 TYPE 2 DIABETES MELLITUS WITHOUT COMPLIC 12/04/2017 SHAHZAD MARTIN MD Ot R07.89 OTHER CHEST PAIN 12/04/2017 SHAHZAD MARTIN MD Ot Z82.49 FAMILY HX OF ISCHEM HEART DIS AND OTH DI 12/04/2017 SHAHZAD MARTIN MD Ot E03.9 HYPOTHYROIDISM, UNSPECIFIED 12/04/2017 SHAHZAD MARTIN MD Ot E11.9 TYPE 2 DIABETES MELLITUS WITHOUT COMPLIC 12/04/2017 SHAHZAD MARTIN MD Ot R07.89 OTHER CHEST PAIN 12/04/2017 SHAHZAD MARTIN MD Ot Z82.49 FAMILY HX OF ISCHEM HEART DIS AND OTH DI 12/05/2017 DONALD LEVIN MD Ot E03.9 HYPOTHYROIDISM, UNSPECIFIED 12/05/2017 DONALD LEVIN MD Ot E11.9 TYPE 2 DIABETES MELLITUS WITHOUT COMPLIC 12/05/2017 DONALD LEVIN MD Ot I10 ESSENTIAL (PRIMARY) HYPERTENSION 12/05/2017 DONALD LEVIN MD Ot K65.8 OTHER PERITONITIS 12/05/2017 DONALD LEVIN MD Ot K81.2 ACUTE CHOLECYSTITIS WITH CHRONIC CHOLECY 12/05/2017 DONALD LEVIN MD Ot Z79.84 MANAGER CULTURE (CURRENT) USE OF ORAL HYPOGLYC 12/05/2017 POONAM CONKLIN, DONALD Hooker Ot Z79.899 OTHER SKILLED NURSING (CURRENT) DRUG THERAPY 12/05/2017 POONAM CONKLIN, DONALD Hooker Ot K80.20 CALCULUS OF GALLBLADDER W/O CHOLECYSTITI 12/05/2017 POONAM CONKLIN, DONALD Hooker Ot Z01.818 ENCOUNTER FOR OTHER PREPROCEDURAL EXAMIN 12/05/2017 POONAM CONKLIN, DONALD Hooker Ot E87.6 HYPOKALEMIA 12/05/2017 POONAM CONKLIN, DONALD M Ot R10.11 RIGHT UPPER QUADRANT PAIN 12/05/2017 POONAM CONKLIN, DONALD M Ot R53.83 OTHER FATIGUE 12/05/2017 DONALD LEVIN MD Ot E87.6 HYPOKALEMIA 12/05/2017 DONALD LEVIN MD M Ot K80.10 CALCULUS OF GALLBLADDER W CHRONIC CHOLEC 12/05/2017 DONALD LEVIN MD M Ot R10.11 RIGHT UPPER QUADRANT PAIN 12/05/2017 DONALD LEVIN MD M Ot R53.83 OTHER FATIGUE 12/05/2017 DONALD LEVIN MD M Ot E87.6 HYPOKALEMIA 12/05/2017 DONALD LEVIN MD M Ot K80.10 CALCULUS OF GALLBLADDER W CHRONIC CHOLEC 12/05/2017 DONALD LEVIN MD M Ot R10.11 RIGHT UPPER QUADRANT PAIN 12/05/2017 POONAM CONKLIN, DONALD M Ot R53.83 OTHER FATIGUE 12/06/2017 POONAM CONKLIN, DONALD M Ot E03.9 HYPOTHYROIDISM, UNSPECIFIED 12/06/2017 POONAM CONKLIN, DONALD M Ot E11.9 TYPE 2 DIABETES MELLITUS WITHOUT COMPLIC 12/06/2017 POONAM CONKLIN, DONALD M Ot I10 ESSENTIAL (PRIMARY) HYPERTENSION 12/06/2017 DONALD LEVIN MD M Ot K65.8 OTHER PERITONITIS 12/06/2017 DONALD LEVIN MD Ot K81.2 ACUTE CHOLECYSTITIS WITH CHRONIC CHOLECY 12/06/2017 DONALD LEVIN MD Ot Z79.84 MANAGER CULTURE (CURRENT) USE OF ORAL HYPOGLYC 12/06/2017 DONALD LEVIN MD Ot Z79.899 OTHER SKILLED NURSING (CURRENT) DRUG THERAPY 12/24/2017 DONALD LEVIN MD M Ot E87.6 HYPOKALEMIA 12/24/2017 POONAM CONKLIN, DONALD Hooker Ot K80.10 CALCULUS OF GALLBLADDER W CHRONIC CHOLEC 12/24/2017 POONAM CONKLIN, DONALD Hooker Ot R10.11 RIGHT UPPER QUADRANT PAIN 12/24/2017 DONALD LEVIN MD Ot R53.83 OTHER FATIGUE 01/18/2018 VALERIA KNOWLES MD Ot V76.12 OTH SCREEN MAMMO-MALIGN NEOPLASM OF [place] 01/18/2018 VALERIA KNOWLES MD Ot 787.3 FLATUL/ERUCTAT/GAS PAIN 01/18/2018 VALERIA KNOWLES MD Ot 250.00 DIAB DONN WO COMPL, TYPE II OR UNSPEC TY 01/18/2018 LEV ALCALA COLD MEAT CHEF Ot 721.0 CERVICAL SPONDYLOSIS 01/18/2018 LEV ALCALA COLD MEAT CHEF Ot 721.3 LUMBOSACRAL SPONDYLOSIS 01/18/2018 LEV ALCALA COLD MEAT CHEF Ot 728.85 SPASM OF MUSCLE 01/18/2018 ANNA FOFANA CHARGE ENTRY SPECIALIST Ot Z12.31 ENCNTR SCREEN MAMMOGRAM FOR MALIGNANT NE 01/18/2018 RICKIE ALVAREZ, ZHANE S Ot E04.9 NONTOXIC GOITER, UNSPECIFIED 01/18/2018 ZHANE JON DO S Ot E04.1 NONTOXIC SINGLE THYROID NODULE 01/18/2018 DONALD LEVIN MD Ot E89.0 POSTPROCEDURAL HYPOTHYROIDISM 01/18/2018 AMAYA JON DOLINE S Ot E04.1 NONTOXIC SINGLE THYROID NODULE 01/18/2018 AMAYA JON DOLINE S Ot E11.65 TYPE 2 DIABETES MELLITUS WITH HYPERGLYCE 01/18/2018 SHAHZAD MARTIN MD Ot E03.9 HYPOTHYROIDISM, UNSPECIFIED 01/18/2018 SHAHZAD MARTIN MD Ot E11.9 TYPE 2 DIABETES MELLITUS WITHOUT COMPLIC 01/18/2018 SHAHZAD MARTIN MD Ot R07.89 OTHER CHEST PAIN 01/18/2018 SHAHZAD MARTIN MD Ot Z82.49 FAMILY HX OF ISCHEM HEART DIS AND OTH DI 01/18/2018 SHAHZAD MARTIN MD Ot E03.9 HYPOTHYROIDISM, UNSPECIFIED 01/18/2018 SHAHZAD MARTIN MD Ot E11.9 TYPE 2 DIABETES MELLITUS WITHOUT COMPLIC 01/18/2018 VERONICA CONKLIN, SHAHZAD Coleman Ot R07.89 OTHER CHEST PAIN 01/18/2018 VERONICA CONKLIN, SHAHZAD Coleman Ot Z82.49 FAMILY HX OF ISCHEM HEART DIS AND OTH DI 01/18/2018 POONAM CONKLIN, DONALD Hooker Ot E87.6 HYPOKALEMIA 01/18/2018 POONAM CONKLIN, DONALD Hooker Ot K80.10 CALCULUS OF GALLBLADDER W CHRONIC CHOLEC 01/18/2018 POONAM CONKLIN, DONALD Hooker Ot R10.11 RIGHT UPPER QUADRANT PAIN 01/18/2018 POONAM CONKLIN, DONALD Hooker Ot R53.83 OTHER FATIGUE 05/01/2018 RICKIE ALVAREZ, ZHANE S Ot Z12.31 ENCNTR SCREEN MAMMOGRAM FOR MALIGNANT NE 05/01/2018 RICKIE ALVAREZ, ZHANE S Ot Z12.31 ENCNTR SCREEN MAMMOGRAM FOR MALIGNANT NE 07/16/2018 VALERIA KNOWLES MD Ot V76.12 OTH SCREEN MAMMO-MALIGN NEOPLASM OF [place] 07/16/2018 VALERIA KNOWLES MD Ot 787.3 FLATUL/ERUCTAT/GAS PAIN 07/16/2018 VALERIA KNOWLES MD Ot 250.00 DIAB DONN WO COMPL, TYPE II OR UNSPEC TY 07/16/2018 LEV ALCALA COLD MEAT CHEF Ot 721.0 CERVICAL SPONDYLOSIS 07/16/2018 LEV ALCALA COLD MEAT CHEF Ot 721.3 LUMBOSACRAL SPONDYLOSIS 07/16/2018 LEV ALCALA COLD MEAT CHEF Ot 728.85 SPASM OF MUSCLE 07/16/2018 ANNA FOFANA APRN Ot Z12.31 ENCNTR SCREEN MAMMOGRAM FOR MALIGNANT NE 07/16/2018 ORENDER DO, ZHANE S Ot E04.9 NONTOXIC GOITER, UNSPECIFIED 07/16/2018 YURYNDER , ZHANE S Ot E04.1 NONTOXIC SINGLE THYROID NODULE 07/16/2018 POONAM CONKLIN, DONALD Hooker Ot E89.0 POSTPROCEDURAL HYPOTHYROIDISM 07/16/2018 YURYNDER DO, ZHANE S Ot E04.1 NONTOXIC SINGLE THYROID NODULE 07/16/2018 YURYNDNINA ALVAREZ, ZHANE S Ot E11.65 TYPE 2 DIABETES MELLITUS WITH HYPERGLYCE 07/16/2018 SHAHZAD MARTIN MD Ot E03.9 HYPOTHYROIDISM, UNSPECIFIED 07/16/2018 SHAHZAD MARTIN MD Ot E11.9 TYPE 2 DIABETES MELLITUS WITHOUT COMPLIC 07/16/2018 SHAHZAD MARTIN MD Ot R07.89 OTHER CHEST PAIN 07/16/2018 SHAHZAD AMRTIN MD Ot Z82.49 FAMILY HX OF ISCHEM HEART DIS AND OTH DI 07/16/2018 SHAHZAD MARTIN MD Ot E03.9 HYPOTHYROIDISM, UNSPECIFIED 07/16/2018 SHAHZAD MARTIN MD Ot E11.9 TYPE 2 DIABETES MELLITUS WITHOUT COMPLIC 07/16/2018 SHAHZAD MARTIN MD Ot R07.89 OTHER CHEST PAIN 07/16/2018 SHAHZAD MARTIN MD Ot Z82.49 FAMILY HX OF ISCHEM HEART DIS AND OTH DI 07/16/2018 POONAM CONKLIN, DONALD Hooker Ot E87.6 HYPOKALEMIA 07/16/2018 DONALD LEVIN MD Ot K80.10 CALCULUS OF GALLBLADDER W CHRONIC CHOLEC 07/16/2018 DONALD LEVIN MD Ot R10.11 RIGHT UPPER QUADRANT PAIN 07/16/2018 DONALD LEVIN MD Ot R53.83 OTHER FATIGUE 07/16/2018 ORENDER DO, ZHANE S Ot Z12.31 ENCNTR SCREEN MAMMOGRAM FOR MALIGNANT NE 07/31/2018 ASTER NETTLES MD Ot Z01.818 ENCOUNTER FOR OTHER PREPROCEDURAL EXAMIN 08/01/2018 VALERIA KNOWLES MD Ot V76.12 OTH SCREEN MAMMO-MALIGN NEOPLASM OF [place] 08/01/2018 VALERIA KNOWLES MD Ot 787.3 FLATUL/ERUCTAT/GAS PAIN 08/01/2018 VALERIA KNOWLES MD Ot 250.00 DIAB DONN WO COMPL, TYPE II OR UNSPEC TY 08/01/2018 LEV LACALA COLD MEAT CHEF Ot 721.0 CERVICAL SPONDYLOSIS 08/01/2018 LEV ALCALA COLD MEAT CHEF Ot 721.3 LUMBOSACRAL SPONDYLOSIS 08/01/2018 LEV ALCALA Ot 728.85 SPASM OF MUSCLE 08/01/2018 ANNA FOFANA APRN Ot Z12.31 ENCNTR SCREEN MAMMOGRAM FOR MALIGNANT NE 08/01/2018 ORENDER DO, ZHANE S Ot E04.9 NONTOXIC GOITER, UNSPECIFIED 08/01/2018 ZHANE JON DO S Ot E04.1 NONTOXIC SINGLE THYROID NODULE 08/01/2018 POONAM CONKLIN, DONALD Hooker Ot E89.0 POSTPROCEDURAL HYPOTHYROIDISM 08/01/2018 AMAYA JON DOLINE S Ot E04.1 NONTOXIC SINGLE THYROID NODULE 08/01/2018 AMAYA JON DOLINE S Ot E11.65 TYPE 2 DIABETES MELLITUS WITH HYPERGLYCE 08/01/2018 SHAHZAD MARTIN MD Ot E03.9 HYPOTHYROIDISM, UNSPECIFIED 08/01/2018 SHAHZAD MARTIN MD Ot E11.9 TYPE 2 DIABETES MELLITUS WITHOUT COMPLIC 08/01/2018 SHAHZAD MARTIN MD Ot R07.89 OTHER CHEST PAIN 08/01/2018 SHAHZAD MARTIN MD Ot Z82.49 FAMILY HX OF ISCHEM HEART DIS AND OTH DI 08/01/2018 SHAHZAD MARTIN MD Ot E03.9 HYPOTHYROIDISM, UNSPECIFIED 08/01/2018 SHAHZAD MARTIN MD Ot E11.9 TYPE 2 DIABETES MELLITUS WITHOUT COMPLIC 08/01/2018 SHAHZAD MARTIN MD Ot R07.89 OTHER CHEST PAIN 08/01/2018 SHAHZAD MARTIN MD Ot Z82.49 FAMILY HX OF ISCHEM HEART DIS AND OTH DI 08/01/2018 POONAM CONKLIN, DONALD Hooker Ot E87.6 HYPOKALEMIA 08/01/2018 POONAM CONKLIN, DONALD Hooker Ot K80.10 CALCULUS OF GALLBLADDER W CHRONIC CHOLEC 08/01/2018 DONALD LEVIN MD Ot R10.11 RIGHT UPPER QUADRANT PAIN 08/01/2018 DONALD LEVIN MD Ot R53.83 OTHER FATIGUE 08/01/2018 YURYAMAYA RENO DOLINE S Ot Z12.31 ENCNTR SCREEN MAMMOGRAM FOR MALIGNANT NE 08/02/2018 ASTER NETTLES MD Ot E03.9 HYPOTHYROIDISM, UNSPECIFIED 08/02/2018 ASTER NETTLES MD Ot E11.36 TYPE 2 DIABETES MELLITUS WITH DIABETIC C 08/02/2018 ASTER NETTLES MD Ot H25.11 AGE-RELATED NUCLEAR CATARACT, RIGHT EYE 08/02/2018 ASTER NETTLES MD Ot Z79.84 SKILLED NURSING (CURRENT) USE OF ORAL HYPOGLYC 08/02/2018 ASTER NETTLES MD Ot Z79.899 OTHER MANAGER CULTURE (CURRENT) DRUG THERAPY 08/06/2018 ASTER NETTLES MD Ot E03.9 HYPOTHYROIDISM, UNSPECIFIED 08/06/2018 ASTER NETTLES MD Ot E11.36 TYPE 2 DIABETES MELLITUS WITH DIABETIC C 08/06/2018 ASTER NETTLES MD Ot H25.11 AGE-RELATED NUCLEAR CATARACT, RIGHT EYE 08/06/2018 ASTER NETTLES MD Ot Z79.84 MANAGER CULTURE (CURRENT) USE OF ORAL HYPOGLYC 08/06/2018 ASTER NETTLES MD Ot Z79.899 OTHER SKILLED NURSING (CURRENT) DRUG THERAPY 08/07/2018 ASTER NETTLES MD Ot E03.9 HYPOTHYROIDISM, UNSPECIFIED 08/07/2018 ASTER NETTLES MD Ot E11.36 TYPE 2 DIABETES MELLITUS WITH DIABETIC C 08/07/2018 ASTER NETTLES MD Ot H25.11 AGE-RELATED NUCLEAR CATARACT, RIGHT EYE 08/07/2018 ASTER NETTLES MD Ot Z79.84 SKILLED NURSING (CURRENT) USE OF ORAL HYPOGLYC 08/07/2018 ASTER NETTLES MD Ot Z79.899 OTHER SKILLED NURSING (CURRENT) DRUG THERAPY 08/21/2018 BENSON CONKLIN, VALERIA Hooker Ot 250.00 DIAB DONN WO COMPL, TYPE II OR UNSPEC TY Procedures There is no data. Results Test [...] Microalbumin/creatinine [ratio] in urine 8.3 mg/g{Cre} 0.0-30.0 Complete blood count (CBC) with automated white blood cell (WBC) differential - 11/27/17 02:45 Blood leukocytes automated count (number/volume) 13.4 10*3/uL 4.3-11.0 Blood erythrocytes automated count (number/volume) 5.03 10*6/uL 4.35-5.85 Venous blood hemoglobin measurement (mass/volume) 15.3 g/dL 11.5-16.0 Blood hematocrit (volume fraction) 45 % 35-52 Automated erythrocyte mean corpuscular volume 90 [foz_us] 80-99 Automated erythrocyte mean corpuscular hemoglobin (mass per erythrocyte) 30 pg 25-34 Automated erythrocyte mean corpuscular hemoglobin concentration measurement ( mass/volume) 34 g/dL 32-36 Automated erythrocyte distribution width ratio 12.5 % 10.0-14.5 Automated blood platelet count (count/volume) 301 10*3/uL 130-400 Automated blood platelet mean volume measurement 10.5 [foz_us] 7.4-10.4 Automated blood neutrophils/100 leukocytes 65 % 42-75 Automated blood lymphocytes/100 leukocytes 24 % 12-44 Blood monocytes/100 leukocytes 9 % 0-12 Automated blood eosinophils/100 leukocytes 2 % 0-10 Automated blood basophils/100 leukocytes 0 % 0-10 Blood neutrophils automated count (number/volume) 8.7 10*3 1.8-7.8 Blood lymphocytes automated count (number/volume) 3.2 10*3 1.0-4.0 Blood monocytes automated count (number/volume) 1.2 10*3 0.0-1.0 Automated eosinophil count 0.3 10*3/uL 0.0-0.3 Automated blood basophil count (count/volume) 0.1 10*3/uL 0.0-0.1 Complete urinalysis with reflex to culture - 11/27/17 02:45 Urine color determination YELLOW NRG Urine clarity determination CLEAR NRG Urine pH measurement by test strip 6 5-9 Specific gravity of urine by test strip 1.020 1.016- 1.022 Urine protein assay by test strip, semi-quantitative NEGATIVE NEGATIVE Urine glucose detection by automated test strip 4+ NEGATIVE Erythrocytes detection in urine sediment by light microscopy 2+ NEGATIVE Urine ketones detection by automated test strip NEGATIVE NEGATIVE Urine nitrite detection by test strip NEGATIVE NEGATIVE Urine total bilirubin detection by test strip NEGATIVE NEGATIVE Urine urobilinogen measurement by automated test strip (mass/volume) NORMAL NORMAL Urine leukocyte esterase detection by dipstick 3+ NEGATIVE Automated urine sediment erythrocyte count by microscopy (number/high power field) [HPF] NRG Automated urine sediment leukocyte count by microscopy (number/high power field ) [HPF] NRG Bacteria detection in urine sediment by light microscopy MODERATE NRG Squamous epithelial cells detection in urine sediment by light microscopy 25-50 NRG Crystals detection in urine sediment by light microscopy NONE NRG Casts detection in urine sediment by light microscopy NONE NRG Mucus detection in urine sediment by light microscopy SMALL NRG Complete urinalysis with reflex to culture YES NRG PT panel in platelet poor plasma by coagulation assay - 11/27/17 02:45 Prothrombin time (PT) in platelet poor plasma by coagulation assay 12.7 s 12.2-14.7 INR in platelet poor plasma or blood by coagulation assay 0.9 0.8-1.4 Activated partial thromboplastin time (aPTT) in platelet poor plasma bycoagulation assay - 11/27/17 02:45 Activated partial thromboplastin time (aPTT) in platelet poor plasma bycoagulation assay 29 s 24-35 Comprehensive metabolic panel - 11/27/17 02:45 Serum or plasma sodium measurement (moles/volume) 142 mmol/L 135-145 Serum or plasma potassium measurement (moles/volume) 3.2 mmol/L 3.6-5.0 Serum or plasma chloride measurement (moles/volume) 106 mmol/L 98-107 Carbon dioxide 21 mmol/L 21-32 Serum or plasma anion gap determination (moles/volume) 15 mmol/L 5-14 Serum or plasma urea nitrogen measurement (mass/volume) 10 mg/dL 7-18 Serum or plasma creatinine measurement (mass/volume) 0.75 mg/dL 0.60-1.30 Serum or plasma urea nitrogen/creatinine mass ratio 13 NRG Serum or plasma creatinine measurement with calculation of estimated glomerular filtration rate > NRG Serum or plasma glucose measurement (mass/volume) 175 mg/dL 70-105 Serum or plasma calcium measurement (mass/volume) 9.9 mg/dL 8.5-10.1 Serum or plasma total bilirubin measurement (mass/volume) 1.4 mg/dL 0.1-1.0 Serum or plasma alkaline phosphatase measurement (enzymatic activity/volume) 79 U/L 40-136 Serum or plasma aspartate aminotransferase measurement (enzymatic activity/ volume) 14 U/L 5-34 Serum or plasma alanine aminotransferase measurement (enzymatic activity/volume ) 18 U/L 0-55 Serum or plasma protein measurement (mass/volume) 7.7 g/dL 6.4-8.2 Serum or plasma albumin measurement (mass/volume) 4.5 g/dL 3.2-4.5 Magnesium - 11/27/17 02:45 Magnesium 1.9 mg/dL 1.8-2.4 Serum or plasma troponin i.cardiac measurement (mass/volume) - 11/27/17 02:45 Serum or plasma troponin i.cardiac measurement (mass/volume) < ng/ mL <0.30 Myoglobin, serum - 11/27/17 02:45 Myoglobin, serum 28.5 ng/mL 10.0-92.0 Lipase - 11/27/17 02:45 Lipase 43 U/L 8-78 Bacterial urine culture - 11/27/17 02:45 Bacterial urine culture [id number] NRG COLONY COUNT 10,000/ML - 100,000/ML NRG FTX;REPORTABLE SENSITIVITY REPORTED AT 0725, 2--18 NR URINE CULTURE RESULTS PLUS NR Bacterial susceptibility panel - 11/27/17 02:45 Gentamicin susceptibility test by minimum inhibitory concentration S NRG Vancomycin susceptibility test by minimum inhibitory concentration 1 NRG Levofloxacin susceptibility test by minimum inhibitory concentration 0.5 NRG Tetracycline susceptibility test by minimum inhibitory concentration >= NRG Ampicillin susceptibility test by minimum inhibitory concentration < = NRG Nitrofurantoin susceptibility test by minimum inhibitory concentration <= NRG Methicillin resistant Staphylococcus aureus (MRSA) screening culture - 10:17 Methicillin resistant Staphylococcus aureus (MRSA) screening culture NEG NRG Capillary blood glucose measurement by glucometer (mass/volume) - 12/04/17 10: 47 Capillary blood glucose measurement by glucometer (mass/volume) 112 mg/dL 70-110 Capillary blood glucose measurement by glucometer (mass/volume) - 12/05/17 06: 13 Capillary blood glucose measurement by glucometer (mass/volume) 161 mg/dL 70-110 Capillary blood glucose measurement by glucometer (mass/volume) - 08/02/18 06: 12 Capillary blood glucose measurement by glucometer (mass/volume) 135 mg/dL 70-110 Encounters ACCT No. Visit Date/Time Discharge Status Pt. Type Provider Facility Loc./Unit Complaint [id number] 08/21/2018 05:50:00 08/21/2018 10:01:00 DIS Outpatient ASTER NETTLES MD [facility] PREOP YAG [id number] 08/02/2018 05:55:00 08/02/2018 07:35:00 DIS Outpatient ASTER NETTLES MD [facility] SDC CATARACT RIGHT [id number] 07/31/2018 06:14:00 07/31/2018 13:55:00 DIS Outpatient ASTER NETTLES MD [facility] PREOP CATARACT RIGHT [id number] 04/30/2018 09:46:00 04/30/2018 23:59:59 CLS Outpatient ZHANE JNO DO [facility] RAD SCREENING [id number] 12/04/2017 10:13:00 12/05/2017 09:15:00 DIS Outpatient DONALD LEVIN MD [facility] SDC GALLSTONE [id number] 12/03/2017 14:37:00 12/03/2017 23:59:59 CLS Outpatient DONALD LEVIN MD [facility] LAB E87.6,R53.83,R10.9 [id number] 12/03/2017 06:06:00 12/03/2017 09:54:00 DIS Outpatient DONALD LEVIN MD [facility] PREOP GALLSTONE [id number] 11/27/2017 02:21:00 11/27/2017 07:00:00 DIS Emergency YESY CONKLIN, JAVED Ruelas [facility] ER UPPER ABD PAIN [id number] 08/15/2017 07:51:00 08/15/2017 23:59:59 CLS Outpatient SHAHZAD MARTIN MD [facility] CARD ANTERIOR CHEST WALL PAIN R07.89 [id number] 08/14/2017 12:02:00 08/14/2017 23:59:59 CLS Outpatient SHAHZAD MARTIN MD [facility] CARD ANTERIOR CHEST WALL PAIN R07.89 [id number] 08/06/2017 06:59:00 08/06/2017 10:07:00 DIS Outpatient DONALD LEVIN MD [facility] ENDO HX OF POLYPS [id number] 07/30/2017 05:39:00 07/30/2017 13:55:00 DIS Outpatient DONALD LEVIN MD [facility] PREOP HX OF POLYPS [id number] 07/10/2017 10:50:00 07/10/2017 23:59:59 CLS Preadmit ORENDER DO, ZHANE S [facility] CARD CHEST PAIN [id number] 07/10/2017 10:45:00 07/10/2017 23:59:59 CLS Preadmit ORENDER DO, ZHANE S [facility] CARD CHEST PAIN [id number] 09/29/2016 08:55:00 09/29/2016 23:59:59 CLS Outpatient ORENDER DO ZHANE S [facility] LAB HEMOGLOBIN, TSH [id number] 09/29/2016 08:49:00 09/29/2016 23:59:59 CLS Outpatient DONALD LEVIN MD [facility] LAB TSH [id number] 09/11/2016 10:01:00 09/13/2016 09:45:00 DIS Outpatient DONALD LEVIN MD [facility] SDC THYROID NODULES [id number] 09/06/2016 05:34:00 09/06/2016 10:18:00 DIS Outpatient DONALD LEVIN MD [facility] PREOP THYROID NODULES [id number] 08/28/2016 08:03:00 08/28/2016 23:59:59 CLS Outpatient YURYNDER DO ZHANE S [facility] RAD RT THYROID NODULE [id number] 08/15/2016 10:27:00 08/15/2016 23:59:59 CLS Outpatient YURYNDER DO ZHANE S [facility] RAD THYROID NODULE [id number] 01/11/2016 12:43:00 01/11/2016 23:59:59 CLS Outpatient ANNA FOFANA APRN [facility] RAD SCREENING [id number] 07/13/2015 12:54:00 07/13/2015 23:59:59 CLS Outpatient LEV ALCALA [facility] RAD NECK PAIN [id number] 03/19/2015 08:00:00 03/19/2015 23:59:59 CLS Preadmit VALERIA KNOWLES MD [facility] DSME DM 2 [id number] 01/04/2015 18:00:00 03/18/2015 00:01:00 DIS Outpatient VALERIA KNOWLES MD [facility] DSME DM 2 [id number] 08/05/2013 10:55:00 08/05/2013 23:59:59 CLS Outpatient VALERIA KNOWLES MD [facility] RAD INCREASED ABD GIRTH, BLOATING [id number] 03/05/2013 14:33:00 03/05/2013 23:59:59 CLS Outpatient VALERIA KNOWLES MD [facility] RAD ROUTINE [id number] 02/06/2013 19:51:00 02/06/2013 23:59:59 CLS Outpatient [id number] 08/23/2018 07:35:00 ACT Outpatient ASTER NETTLES MD [facility] YAG [id number] 03/25/2012 08:05:00 Document Registration [id number] 03/22/2012 08:40:00 Document Registration [id number] 12/26/2011 07:59:00 Document Registration 07/201707/18/2018 23:51:04 07/18/2018 23:59:59 CLS Outpatient Zhane Jon 5946 08/04/2016 09:23:19 08/04/2016 23:59:59 CLS Outpatient
--- NOTE | 2018-08-23 08:26 | Ophthalmologist Pre-Op Note ---
Pre-Operative Progress Note H&P Reviewed The H&P was reviewed, patient examined and no changes noted. Date H&P Reviewed: Aug 23, 2018 Time H&P Reviewed: 08:25 Pre-Op Dx Secondary Cataract, Right Eye ASTER NETTLES MD Aug 23, 2018 08:26
--- NOTE | 2018-08-23 08:38 | Ophthalmology Operative Report ---
YAG Capsulotomy PREOPERATIVE DIAGNOSIS: Secondary Cataract Left Eye POSTOPERATIVE DIAGNOSIS: Secondary Cataract Left Eye PROCEDURE: YAG Capsulotomy, left eye SURGEON: Galo Nettles ANESTHESIA: Topical anesthesia COMPLICATIONS: None ESTIMATED BLOOD LOSS: Minimal DESCRIPTION OF PROCEDURE: After proper informed consent was obtained, the patient's, a 62 female left eye received one drop of Tropicamide and one drop of Tetracaine. The patient was then placed at the YAG laser and using a power of [3.8 ] millijoules and [26 ] bursts were used to fashion a central capsulotomy. The patient tolerated the procedure well without complications and the patient's pressure was [16 ] shortly after the laser. GALO NETTLES MD Aug 23, 2018 08:38
[2018-08-23 08:40] VITALS: BP 121/80
== END 2018-08-23 08:40 | disposition home or self-care (01) ==
LOC: SDC 07:35
PROVIDERS: ATTEND Specialist
DX: H26.492 Other secondary cataract, left eye (principal); E11.9 Type 2 diabetes mellitus without complications; E03.9 Hypothyroidism, unspecified; Z79.84 Long term (current) use of oral hypoglycemic drugs; Z79.899 Other long term (current) drug therapy

== ENCOUNTER → 2019-06-02 | Outpatient (CLI) | payer MEDICARE, OTHER ==
[~2019-06-02] MED LIST changes: -OMEP20CA12 PO; +OMEP20CA13 PO
--- NOTE | 2019-06-02 11:50 | Diagnostic Imaging Report ---
CLINICAL INDICATION: Patient with right foot pain. Patient fell in a hole on Sunday on her foot. Patient has pain and swelling on the top of the foot. EXAM: X-ray of the right foot, three views. COMPARISON: None. FINDINGS: Osteopenia is seen. There is no acute fracture or dislocation. There are small degenerative spurs involving the first IP joint and first MTP joint. There are hypertrophic calcaneal spurs at the plantar and Achilles attachment. There is spurring of the dorsal midfoot. IMPRESSION: 1: There is no acute fracture or dislocation. 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 Dictated by: Dictated on workstation # [id number]
== END ==
LOC: RAD 11:04
PROVIDERS: ATTEND Family Medicine
DX: M19.071 Primary osteoarthritis, right ankle and foot (principal)
CPT/HCPCS: 73630

== ENCOUNTER → 2020-08-13 | Outpatient (CLI) | payer MEDICARE, OTHER ==
[~2020-08-13] MED LIST changes: +METF-865 PO; -METF500T8 PO; -OMEP20CA13 PO; +OMEP20CA18 PO
--- NOTE | 2020-08-13 10:12 | Diagnostic Imaging Report ---
PROCEDURE: US Renal Bilateral. TECHNIQUE: Multiple real-time grayscale images were obtained over the kidneys in various projections bilaterally. INDICATION: Right flank pain and hematuria There are no prior renal ultrasound examinations available for comparison. The gallbladder ultrasound exam 11/27/2017 failed to show any sign of an acute abnormality of the right kidney. There was a 2.6 cm benign-appearing parapelvic cyst involving the right kidney. On this exam both kidneys were identified. The right kidney measures 11.6 x 5.0 x 5.0 cm, left kidney is estimated to be 10.4 x 5.6 x 5.2 cm. The peripelvic cyst involving the right kidney seen previously is again evident and similar in appearance. This cyst now measures 2.3 x 1.9 cm. There is no sign of a solid renal mass involving either kidney and there is no evidence for hydronephrosis. The renal cortices are normal in thickness and echogenicity. The bladder was imaged during the course of the exam. The bladder is fairly well distended. There is no obvious bladder abnormality evident. Both ureteral jets were noted. IMPRESSION: 1. There is no evidence for solid renal mass or for an acute abnormality of either kidney. 2. The benign-appearing cysts associated with the right kidney seen previously are again evident and no different. 3. The urinary bladder is grossly unremarkable. Dictated by: Dictated on workstation # [id number]
== END ==
LOC: RAD 09:15
PROVIDERS: ATTEND Family Medicine
DX: R10.9 Unspecified abdominal pain (principal); R31.9 Hematuria, unspecified
CPT/HCPCS: 76770

== ENCOUNTER → 2021-03-07 | Outpatient (CLI) | payer MEDICARE, OTHER ==
--- NOTE | 2021-03-07 11:14 | Diagnostic Imaging Report ---
INDICATION: Routine screening. COMPARISON: 04/30/2018 and 01/11/2016. TECHNIQUE: 2D and 3D bilateral screening mammography was performed with CAD. FINDINGS: Both breasts are heterogeneously dense, limiting the sensitivity of mammography. The parenchymal is stable. No mass or malignant appearing microcalcifications are seen. The axillae are unremarkable. IMPRESSION: No mammographic features suspicious for malignancy are identified. ACR BI-RADS Category 1: Negative. Result letter will be mailed to the patient. Note: At least 10% of breast cancer is not imaged by mammography. Dictated by: Dictated on workstation # [id number]
== END ==
LOC: RAD 08:30
PROVIDERS: ATTEND Family Medicine
DX: Z12.31 Encounter for screening mammogram for malignant neoplasm of breast (principal)
CPT/HCPCS: 77063; 77067

== ENCOUNTER → 2021-06-06 | Outpatient (CLI) | payer MEDICARE, OTHER | LOC: CARD 13:00 | PROVIDERS: ATTEND Internal Medicine Cardiovascular Disease | DX: I35.1 Nonrheumatic aortic (valve) insufficiency (principal); I10 Essential (primary) hypertension | CPT/HCPCS: 93306 ==

== ENCOUNTER → 2021-07-25 | Outpatient (CLI) | payer MEDICARE, OTHER ==
[~2021-07-25] VITALS: Ht 165 cm; Wt 84.0 kg
[~2021-07-25] MED LIST changes: +CATHETER FLUSH 10 ML SYR IV PRN
[2021-07-25 09:30] VITALS: BP 112/83
--- NOTE | 2021-07-25 12:52 | Cardiology Stress Test Report ---
Stress Test Report Date of Procedure/Referring: Date of Procedure: Jul 25, 2021 PCP Shahzad Adames MD Admitting Physician Zhane Jon DO Indications: HTN Baseline Heart Rate: 72 Baseline Blood Pressure: Blood Pressure Systolic: 112 Blood Pressure Diastolic: 83 Vital Signs Date Time Temp Pulse Resp B/P (MAP) Pulse Ox O2 Delivery O2 Flow Rate FiO2 07/25/21 09:30 72 16 112/83 (93) 97 Room Air Baseline Vital Signs Vital Signs Date Time Temp Pulse Resp B/P (MAP) Pulse Ox O2 Delivery O2 Flow Rate FiO2 07/25/21 09:30 72 16 112/83 (93) 97 Room Air Baseline EKG: Baseline EKG: NSR Summary: After explaining the procedure and details to the patient, she signed the consent and was brought to the stress nuclear laboratory. Patient exercised on standard Sunny protocol, EKG, heart rate and blood pressure were monitored continuously, resting and stress doses of radio tracer were injected, imaging was acquired and reviewed in the short axis, horizontal long axis and vertical long axis views Patient was able to exercise for a total of 6.30 minutes on Sunny protocol, METs 7.9 Maximum heart rate 133 Maximum blood pressure 181/87 Stress EKG, Minimal nondiagnostic changes Recovery EKG, Return to baseline TID: 1.04 SSS: 3 SDS: 3 EF: 55 Conclusion: 1. Good exercise tolerance for a total of 6 minutes 30 seconds on standard Sunny protocol 7.9 METS achieving 86% of maximal expected heart rate 2. Appropriate heart rate response to exercise with hypertensive response to exercise with peak blood pressure 181/87 return to baseline during recovery 3. Minimal nondiagnostic EKG changes with exercise return to baseline during recovery 4. No significant ischemia or infarction on SPECT images 5. Normal left ventricular size, ejection fraction 55% SHAHZAD ADAMES MD Jul 25, 2021 12:52
== END ==
LOC: CARD 08:00
PROVIDERS: ATTEND Internal Medicine Cardiovascular Disease
DX: I10 Essential (primary) hypertension (principal)
CPT/HCPCS: 78452; 93017; A9502

== ENCOUNTER 2021-09-14 10:00 | Outpatient (CLI) | payer MEDICARE, OTHER ==
[~2021-09-14] VITALS: Ht 165.1 cm; Wt 83.9 kg
[2021-09-14 09:43] VITALS: BP 132/74
[~2021-09-14 10:00] MED LIST changes: -CATHETER FLUSH 10 ML SYR IV PRN
[2021-09-14] MEDS ORDERED: BAMLANIVIMAB 700 MG/ETESEVIMAB 1,400 MG IN NS IV ONE ×3 (10:30)
[2021-09-14] MEDS ORDERED: EPINEPHrine INJECTION 1 MG/ML AMP IM PRN (10:30)
[2021-09-14] MEDS ORDERED: ONDANSETRON 4 MG/2 ML (SDV) Z0FRAN IV PRN (10:30)
[2021-09-14] MEDS ORDERED: diphenhydrAMINE 50 MG/ML INJ (BENADRYL) IV PRN (10:30)
[2021-09-14] MEDS ORDERED: ACETAMINOPHEN 500 MG TAB (TYLENOL) PO PRN (10:30)
[2021-09-14 11:23] VITALS: BP 126/74
== END 2021-09-14 12:13 | disposition home or self-care (01) ==
LOC: INFUSION 10:00
PROVIDERS: ATTEND Family Medicine
DX: U07.1 COVID-19 (principal)

== ENCOUNTER → 2022-01-12 | Outpatient (RCR) | payer MEDICARE, OTHER | END | disposition home or self-care (01) | PROVIDERS: ATTEND Family Medicine | DX: M54.6 Pain in thoracic spine (principal); M54.50 Low back pain, unspecified; M53.3 Sacrococcygeal disorders, not elsewhere classified; I10 Essential (primary) hypertension ==

== ENCOUNTER → 2022-01-17 | Outpatient (CLI) | payer MEDICARE, OTHER ==
--- NOTE | 2022-01-17 17:35 | Diagnostic Imaging Report ---
Indication: Fall and back pain. Time of Exam: 2:35 PM Curvature of the lumbar spine is normal. There is minimal anterolisthesis of L3 on L4. Vertebral body heights are well-maintained. No acute compression fracture is seen. There is generalized spondylosis with variable disc space narrowing and marginal spurring. IMPRESSION: Lumbar spondylosis. No acute bony abnormality is detected. Dictated by: Dictated on workstation # [id number]
== END ==
LOC: RAD 14:11
PROVIDERS: ATTEND Family Medicine
DX: M47.816 Spondylosis without myelopathy or radiculopathy, lumbar region (principal)
CPT/HCPCS: 72100

== ENCOUNTER 2022-02-10 09:07 | Outpatient (RCR) | payer MEDICARE, OTHER | END 2022-02-11 | disposition home or self-care (01) | PROVIDERS: ATTEND Family Medicine | DX: M54.6 Pain in thoracic spine (principal); M54.50 Low back pain, unspecified; M53.3 Sacrococcygeal disorders, not elsewhere classified; I10 Essential (primary) hypertension; E11.9 Type 2 diabetes mellitus without complications | CPT/HCPCS: 97110; 97140; G0283 ==

== ENCOUNTER 2022-05-27 22:22 | Emergency (ER) | payer MEDICARE, OTHER ==
[~2022-05-27] VITALS: Ht 165 cm; Wt 83.0 kg
--- NOTE | 2022-05-27 23:17 | ED EENT ---
History of Present Illness General Chief Complaint: Allergic Reaction Stated Complaint: THROAT SWELLING,TROUBLE BREATHING,NEW MEDICATIONS Nursing Triage Note: PT REPORTS TO ED FOR THROAT DISCOMFORT AND HOARSNESS. PER PT SHE NOTICED IT YESTERDAY BUT IS WORSE TODAY. SHE STATES SHE FEELS LIKE HER 'THROAT IS CLOSING'. THE ONLY NEW THING SHE HAS TAKEN IS RYBELSUS THAT SHE STARTED SUNDAY MORNING. OTHERWISE NO KNOWN ALLERGIES. PT AMB. TO ROOM 03 WITH FRIEND AT BEDSIDE. NO IMMEDIATE AIRWAY CONCERNS AT THIS TIME. Source: patient Exam Limitations: no limitations History of Present Illness Date Seen by Provider: May 27, 2022 Time Seen by Provider: 22:39 Initial Comments Patient to the ER by private conveyance from home with chief complaint of feeling like her throat is sore and swollen for the past 2 days since she started taking Rybelsus. 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 She read that it was one of the side effects that it can cause a sore swollen throat sensation. She is a patient of Dr. Petersen. She is not having any stridor wheezing or history of lung disease. Nursing reports she has normal vital signs. She is not having any pain. No fevers or chills nausea vomiting or diarrhea. Allergies and Home Medications Allergies Coded Allergies: No Known Drug Allergies (Unverified , 08/21/18) Patient Home Medication List Home Medication List Reviewed: Yes Dapagliflozin Propanediol (Farxiga) 10 Mg Tablet, 10 MG PO DAILY, (Reported) Entered as Reported by: LESLY ARREAGA on 07/30/17 1349 Levothyroxine Sodium (Levothyroxine Sodium) 112 Mcg Tablet, 112 MCG PO DAILY, (Reported) Entered as Reported by: LESLY ARREAGA on 07/30/17 1349 Metformin HCl (Metformin HCl ER) 500 Mg Tab.er.24h, 500 MG PO DAILY, (Reported) Entered as Reported by: LESLY ARREAGA on 07/30/17 1349 Review of Systems Review of Systems Constitutional: No chills, No diaphoresis, No fever, No malaise Eyes: Denies Blindness, Denies Blurred Vision Ears: Denies Dizziness, Denies Pain Nose: denies clots, denies congestion Mouth: denies clots, denies loose teeth Throat: denies pain, denies swelling Respiratory: see HPI; No cough, No stridor, No wheezing Cardiovascular: No chest pain, No edema Gastrointestinal: No abdominal pain, No nausea, No vomiting All Other Systems Reviewed Negative Unless Noted: Yes Past Sptcuio-Kgrzhc-Uoucyl Hx Patient Social History Tobacco Use?: No Substance use?: No Alcohol Use?: Yes Alcohol type: Wine Alcohol Frequency: Once in a while Pt feels they are or have been: No Immunizations Up To Date Tetanus Booster (TDap): Unknown First/Initial COVID19 Vaccinat: 2020 Second COVID19 Vaccination Jan: 2020 COVID19 Vaccine Economic Development Specialist: [place] Seasonal Allergies Seasonal Allergies: Yes Past Medical History Surgery/Hospitalization HX: PMH;DM AND HYPOTHYROIDISM. SURGERY; GALLBLADDER REMOVAL, CATARACT, T&A, AND THYROIDECTOMY. Surgeries: Yes Thyroidectomy, Tonsillectomy Respiratory: No Cardiac: No Neurological: No INSTRUCTOR PAINTING History: Menopausal Genitourinary: No Gastrointestinal: Yes Polyps, Gall Bladder Disease Musculoskeletal: Yes Endocrine: Yes Diabetes, Non-Insulin dep HEENT: No Loss of Vision: Bilateral Hearing Impairment: Denies Cancer: No Psychosocial: Yes Anxiety Integumentary: No Blood Disorders: No Family Medical History Alcoholism 19 FATHER Cardiovascular disease 19 MOTHER Colon cancer G8 BROTHER Diabetes mellitus 19 MOTHER G8 BROTHER Drug abuse G8 BROTHER Hypertension 19 MOTHER G8 BROTHER Cancer Physical Exam Vital Signs Vital Signs - First Documented 05/27/22 22:25 Temp 36.1 Pulse 89 Resp 20 B/P (MAP) 149/117 (128) Pulse Ox 95 O2 Delivery Room Air Height, Weight, BMI Height: 5'5.00" Weight: 170lbs. 0.0oz. [id number]; 30.00 BMI Method:Stated General Appearance: WD/WN, no apparent distress Eyes: bilateral eye normal inspection, bilateral eye PERRL, bilateral eye EOMI Ears: bilateral ear auricle normal, bilateral ear canal normal, bilateral ear TM normal Nose: normal inspection Mouth/Throat: pharynx normal (Faint erythema in the retropharynx but no swelling), dental tenderness; No tonsillar swelling, No uvula swelling; voice changes (Mild hoarseness) Neck: non-tender, full range of motion, supple, normal inspection Cardiovascular: normal peripheral pulses, regular rate, rhythm Respiratory: lungs clear, normal breath sounds Gastrointestinal: normal bowel sounds, non tender Neurologic/Psychiatric: alert, normal mood/affect, oriented x 3 Skin: normal color, warm/dry Progress/Results/Core Measures Results/Orders Vital Signs/I&O 05/27/22 05/27/22 22:25 22:25 Temp 36.1 Pulse 89 Resp 20 B/P (MAP) 149/117 (128) Pulse Ox 95 O2 Delivery Room Air Blood Pressure Mean: 128 Progress Progress Note : Time: 23:20 Progress Note Patient has no acute emergency. We have observed her for about an hour and she feels like she is not any worse than when she started. We have encouraged her to stop taking her new medication and follow-up with Dr. Jno. In the meanwhile she can continue taking the Janumet. Departure Impression Primary Impression: Medication adverse effect Qualified Codes: T50.905A - Adverse effect of unspecified drugs, medicaments and biological substances, initial encounter Additional Impression: Laryngitis Disposition: 01 HOME, SELF-CARE Condition: Stable Departure-Patient Inst. Decision time for Depature: 23:23 Referrals: ROXIE JON DO (PCP) Primary Care Physician Patient Instructions: Laryngitis (DC) Add. Discharge Instructions: I suspect that your laryngitis could be due to the medication you are taking. Stop taking it and resume taking your Janumet in the morning. Return to the ER if you are having difficulty breathing that is significantly worsening. Next week follow-up with your primary care doctor to discuss your medications. All discharge instructions reviewed with patient and/or family. Voiced understanding. Copy Copies To 1: ROXIE JON TITUS J May 27, 2022 23:17
[2022-05-27 23:55] VITALS: BP 148/92
== END 2022-05-27 23:53 | disposition home or self-care (01) ==
LOC: EDUNIT# 22:22 → ER 22:24
DX: J04.0 Acute laryngitis (principal); T38.3X5A Adverse effect of insulin and oral hypoglycemic [antidiabetic] drugs, initial encounter
CPT/HCPCS: 99282